=== PATIENT | male | born 1955 | race Caucasian/White ===

== ENCOUNTER → 2016-11-29 | Outpatient (CLI) | payer OTHER ==
--- NOTE | 2016-11-29 13:34 | US ---
EXAM DATE: 11/29/16 PATIENT'S AGE: 61 Patient: MEHREEN PERRY Facility: [place], [place] Site . Site : 1955 Study: US Abdomen [id number]/24/2017 9:28:59 AM Ordering Physician: Steven Leija Final Report: HISTORY: Evaluate for abdominal aortic aneurysm. Comparison: None. Technique: Abdominal aortic ultrasound. Findings: The diameter of the proximal, mid, and distal abdominal aorta, when measured in the longitudinal plane, is 2.0, 1.4, and 1.7 cm respectively. Borderline dilation of the right common iliac artery to 16 mm. Left common iliac artery is normal in caliber. Impression: 1. No sonographic evidence for an abdominal aortic aneurysm. 2. Borderline dilation of the right common iliac artery, of doubtful significance. Dictated by Zbigniew Drake MD @ Nov 29 2016 12:55PM (Electronic Signature) Report Signed by Proxy and Original Signed Document filed in the Medical Record. MTDD
== END ==
LOC: MW.US 08:44
DX: Z13.6 Encounter for screening for cardiovascular disorders (principal); Z72.0 Tobacco use
CPT/HCPCS: 76775; 76775-26

== ENCOUNTER 2017-09-07 15:08 | Inpatient (IN) | payer OTHER ==
[2017-09-07] MEDS ORDERED: Sodium Chloride 0.9% 10 ML Syringe FLUSH PRN (15:45)
[2017-09-07] MEDS ORDERED: Sodium Chloride 0.9% 2.5 ML Syringe FLUSH PRN (15:45)
--- NOTE | 2017-09-07 16:21 | EDM.PDOC ---
ED HPI GENERAL MEDICAL PROBLEM - General Chief Complaint: General Stated Complaint: WEAKNESS Time Seen by Provider: 09/07/17 15:31 Source of Information: Reports: Patient, Family, Old Records History Limitations: Reports: No Limitations - History of Present Illness INITIAL COMMENTS - FREE TEXT/NARRATIVE: HISTORY AND PHYSICAL: []61-year-old male presenting with increased weakness vague symptoms Patient was sent over from the [place] for a wound on his right foot History of Present Illness: []Patient had initially noticed some thing wrong with his foot in June 2017 He was seen a few weeks ago and treated and Ol[facility] Rosenberg for 3 days on vancomycin IV penetrating 1.5 cm ulcer was found on the lateral aspect of right mid foot blood and wound cultures have been entertained at that time no abscess or osteomyelitis have been found on the CT scan recommendation at that time was to follow-up in a larger facility where he would be able to have exploratory surgery as the necrotic tissue may be the "tip of the iceberg" initially [facility] did not approve transfer to tertiary care hospital and patient was discharged He was then treated as outpatient through the [place] clinic. An x-ray was obtained yesterday at [facility] and the states she was told it did not extend into the bone. Patient has worsened with his symptoms and now is quite weak and run a low- grade temperature He is not diabetic. Patient denies headaches difficulty chewing or swallowing no chest pain. Occasionally having some shortness of breath but is on Symbicort. Slight confusion. Hypertension Review of Systems: As per history of present illness and below otherwise all systems reviewed and negative. Past medical history: As per history of present illness and as reviewed below otherwise noncontributory. Surgical history: As per history of present illness and as reviewed below otherwise noncontributory. Social history: No reported history of drug or alcohol abuse. Family history: As per history of present illness and as reviewed below otherwise noncontributory. Physical exam: Alert gentleman presenting with weakness. is at bedside. Is able to answer questions when given time. HEENT: Atraumatic, normocehpalic, pupils reactive, negative for conjunctival pallor or scleral icterus, mucous membranes moist, throat clear, neck supple, nontender, trachea midline. Lungs: Clear to auscultation, breath sounds equal bilaterally, chest non tender. Heart: S1S2, regular, negative for clicks, rubs, or JVD. Abdomen: Soft, nondistended, nontender. Negative for masses or hepatossplenmegaly. Negative for costovertebral tenderness. Pelvis: Stable nontender. Genitourinary: Deferred. Rectal: Deferred Extremities: Right lateral foot with erythema packing to live wound previous x- ray shows arthritic midfoot no involvement to the bone of osteomyelitis, negative for cords or calf pain. Neurovascular unremarkable. Neuro: Awake, alert, oriented. Cranial nerves II through XII unremarkable. Cerebellum unremarkable. Motor and sensory unremarkable throughout. Exam nonfocal. Discussed this case with Dr. Hoyos who has accepted admission. Diagnostics: [CBC CMP blood cultures 2 chest x-ray and CT right foot with contrast] Therapeutics: []1 g Rocephin IV 1 L fluid saline Impression: []Acute cellulitis/chronic wound Plan: []Admit as inpatient for antibiotic therapy Definitive disposition and diagnosis as appropriate pending reevaluation and review of above. Onset: Gradual Duration: Week(s): Location: Reports: Lower Extremity, Right Quality: Reports: Throbbing Severity: Moderate Improves with: Reports: None Worsens with: Reports: None - Related Data Allergies Allergy/AdvReac Type Severity Reaction Status Date / Time codeine Allergy Other Verified 09/07/17 15:33 Home Meds: Home Meds Budesonide/Formoterol [Symbicort 160-4.5 MCG] 2 puff INH BID 09/07/17 [History] Hydrochlorothiazide 25 mg PO DAILY 09/07/17 [History] Losartan [Cozaar] 25 mg PO DAILY 09/07/17 [History] Past Medical History Cardiovascular History: Reports: Hypertension Respiratory History: Reports: COPD Gastrointestinal History: Reports: Other (See Below) Other Gastrointestinal History: umbicial hernia - Infectious Disease History Infectious Disease History: Reports: Measles, Mumps - Past Surgical History Musculoskeletal Surgical History: Reports: Other (See Below) Other Musculoskeletal Surgeries/Procedures:: R Leg Social & Family History - Family History Family Medical History: Noncontributory - Tobacco Use Smoking Status *Q: Never Smoker Second Hand Smoke Exposure: No - Caffeine Use Caffeine Use: Reports: Coffee, Energy Drinks, Soda, Tea - Alcohol Use Days Per Week of Alcohol Use: 7 Number of Drinks Per Day: 8 Total Drinks Per Week: 56 - Recreational Drug Use Recreational Drug Use: No ED ROS GENERAL - Review of Systems Review Of Systems: ROS reveals no pertinent complaints other than HPI. ED EXAM, GENERAL - Physical Exam Exam: See Below Course - Vital Signs Last Recorded V/S: Last Vital Signs Temp 37.6 C 09/07/17 15:29 Pulse 91 09/07/17 15:29 Resp 18 09/07/17 15:29 BP 124/73 09/07/17 15:29 Pulse Ox 93 L 09/07/17 15:29 - Orders/Labs/Meds Orders: Active Orders 24 hr Category Date Time Status Cardiac Monitoring [RC] . DIRECTED Care 09/07/17 15:43 Active EKG Documentation Completion [RC] STAT Care 09/07/17 15:43 Active Oxygen Therapy, ED [RC] ASDIRECTED Care 09/07/17 15:43 Active Chest 2V [CR] Stat Exams 09/07/17 15:45 Taken CULTURE BLOOD [BC] Stat Lab 09/07/17 16:00 Received CULTURE BLOOD [BC] Stat Lab 09/07/17 16:54 Results CULTURE WOUND [RM] Stat Lab 09/07/17 17:28 Uncollected UA W/O MICROSCOPIC [URIN] Stat Lab 09/07/17 15:44 Uncollected Sodium Chloride 0.9% [Normal Saline] 1,000 ml Med 09/07/17 17:31 Active IV STAT Sodium Chloride 0.9% [Saline Flush] Med 09/07/17 15:45 Active 10 ml FLUSH ASDIRECTED PRN Sodium Chloride 0.9% [Saline Flush] Med 09/07/17 15:45 Active 2.5 ml FLUSH ASDIRECTED PRN Blood Culture x2 Reflex Set [OM.PC] Stat Oth 09/07/17 15:46 Ordered Saline Lock Insert [OM.PC] Stat Oth 09/07/17 15:43 Ordered Medication Orders Sodium Chloride (Normal Saline) 1,000 mls @ 999 mls/hr IV STAT ONE Stop: 09/07/17 18:31 Sodium Chloride (Saline Flush) 10 ml FLUSH ASDIRECTED PRN PRN Reason: Keep Vein Open Sodium Chloride (Saline Flush) 2.5 ml FLUSH ASDIRECTED PRN PRN Reason: Keep Vein Open Labs: Laboratory Tests 09/07/17 09/07/17 09/07/17 Range/Units 16:40 16:40 16:40 WBC 8.15 (4.0-11.0) K/uL RBC 4.39 L (4.50-5.90) M/uL Hgb 13.2 (13.0-17.0) g/dL Hct 38.3 (38.0-50.0) % MCV 87.2 (80.0-98.0) fL MCH 30.1 (27.0-32.0) pg MCHC 34.5 (31.0-37.0) g/dL RDW Std Deviation 41.0 (28.0-62.0) fl RDW Coeff of Tony 13 (11.0-15.0) % Plt Count 162 (150-400) K/uL MPV 11.40 (7.40-12.00) fL Neut % (Auto) 84.5 H (48.0-80.0) % Lymph % (Auto) 6.6 L (16.0-40.0) % [place] % (Auto) 8.8 (0.0-15.0) % Eos % (Auto) 0.0 (0.0-7.0) % Baso % (Auto) 0.1 (0.0-1.5) % Neut # (Auto) 6.9 H (1.4-5.7) K/uL Lymph # (Auto) 0.5 L (0.6-2.4) K/uL [place] # (Auto) 0.7 (0.0-0.8) K/uL Eos # (Auto) 0.0 (0.0-0.7) K/uL Baso # (Auto) 0.0 (0.0-0.1) K/uL Nucleated RBC % 0.0 /100WBC Nucleated RBCs # 0 K/uL INR Lactate (0.20-2.00) mmol/L Sodium 129 L (136-146) mmol/L Potassium 4.0 (3.5-5.1) mmol/L Chloride 97 L (98-110) mmol/L Carbon Dioxide 22 (21-31) mmol/L BUN 19 (6.0-23.0) mg/dL Creatinine 0.8 (0.6-1.5) mg/dL Est Cr Clr Drug Dosing 103.74 mL/min Estimated GFR (MDRD) > 60.0 ml/min Glucose 114 H (60-110) mg/dL Calcium 9.0 (8.8-10.8) mg/dL Total Bilirubin 0.9 (0.1-1.5) mg/dL AST 25 (5-40) IU/L ALT 27 (8-54) IU/L Alkaline Phosphatase 84 (40-150) Ammonia 56 (14-68) UG/DL Total Protein 7.5 (6.0-8.0) g/dL Albumin 3.4 (3.4-4.8) g/dL Globulin 4.1 H (2.0-3.5) g/dL Albumin/Globulin Ratio 0.8 L (1.3-2.8) Amylase 27 (10-90) U/L Lipase 15 (7-80) U/L 09/07/17 09/07/17 Range/Units 16:40 16:40 WBC (4.0-11.0) K/uL RBC (4.50-5.90) M/uL Hgb (13.0-17.0) g/dL Hct (38.0-50.0) % MCV (80.0-98.0) fL MCH (27.0-32.0) pg MCHC (31.0-37.0) g/dL RDW Std Deviation (28.0-62.0) fl RDW Coeff of Tony (11.0-15.0) % Plt Count (150-400) K/uL MPV (7.40-12.00) fL Neut % (Auto) (48.0-80.0) % Lymph % (Auto) (16.0-40.0) % [place] % (Auto) (0.0-15.0) % Eos % (Auto) (0.0-7.0) % Baso % (Auto) (0.0-1.5) % Neut # (Auto) (1.4-5.7) K/uL Lymph # (Auto) (0.6-2.4) K/uL [place] # (Auto) (0.0-0.8) K/uL Eos # (Auto) (0.0-0.7) K/uL Baso # (Auto) (0.0-0.1) K/uL Nucleated RBC % /100WBC Nucleated RBCs # K/uL INR 1.09 Lactate 0.9 (0.20-2.00) mmol/L Sodium (136-146) mmol/L Potassium (3.5-5.1) mmol/L Chloride (98-110) mmol/L Carbon Dioxide (21-31) mmol/L BUN (6.0-23.0) mg/dL Creatinine (0.6-1.5) mg/dL Est Cr Clr Drug Dosing mL/min Estimated GFR (MDRD) ml/min Glucose (60-110) mg/dL Calcium (8.8-10.8) mg/dL Total Bilirubin (0.1-1.5) mg/dL AST (5-40) IU/L ALT (8-54) IU/L Alkaline Phosphatase (40-150) Ammonia (14-68) UG/DL Total Protein (6.0-8.0) g/dL Albumin (3.4-4.8) g/dL Globulin (2.0-3.5) g/dL Albumin/Globulin Ratio (1.3-2.8) Amylase (10-90) U/L Lipase (7-80) U/L Meds: Medications Generic Name Dose Route Start Last Admin Trade Name Freq PRN Reason Stop Dose Admin Sodium Chloride 1,000 mls @ 999 mls/hr 09/07/17 17:31 Normal Saline IV 09/07/17 18:31 STAT ONE Sodium Chloride 10 ml 09/07/17 15:45 Saline Flush FLUSH ASDIRECTED PRN Keep Vein Open Sodium Chloride 2.5 ml 09/07/17 15:45 Saline Flush FLUSH ASDIRECTED PRN Keep Vein Open Discontinued Medications Generic Name Dose Route Start Last Admin Trade Name Freq PRN Reason Stop Dose Admin Sodium Chloride 1,000 mls @ 999 mls/hr 09/07/17 16:27 09/07/17 16:48 Normal Saline IV 09/07/17 17:27 999 mls/hr STAT ONE Administration Ceftriaxone Sodium 1,000 mg/ 4 mls @ 4 mls/sec 09/07/17 17:31 Lidocaine HCl IM 09/07/17 17:32 ONETIME ONE Departure - Departure Time of Disposition: 17:42 Disposition: Admitted As Inpatient 64 Condition: Good Clinical Impression: Cellulitis of right foot - Discharge Information Referrals: PCP,None [Primary Care Provider] - Forms: ED Department Discharge - My Orders Last 24 Hours: My Active Orders 09/07/17 15:43 Cardiac Monitoring [RC] . DIRECTED EKG Documentation Completion [RC] STAT Oxygen Therapy, ED [RC] ASDIRECTED Saline Lock Insert [OM.PC] Stat 09/07/17 15:44 UA W/O MICROSCOPIC [URIN] Stat 09/07/17 15:45 Chest 2V [CR] Stat Sodium Chloride 0.9% [Saline Flush] 10 ml FLUSH ASDIRECTED PRN Sodium Chloride 0.9% [Saline Flush] 2.5 ml FLUSH ASDIRECTED PRN 09/07/17 15:46 Blood Culture x2 Reflex Set [OM.PC] Stat 09/07/17 16:00 CULTURE BLOOD [BC] Stat 09/07/17 16:54 CULTURE BLOOD [BC] Stat 09/07/17 17:28 CULTURE WOUND [RM] Stat 09/07/17 17:31 Sodium Chloride 0.9% [Normal Saline] 1,000 ml IV STAT - Assessment/Plan Last 24 Hours: My Active Orders 09/07/17 15:43 Cardiac Monitoring [RC] . DIRECTED EKG Documentation Completion [RC] STAT Oxygen Therapy, ED [RC] ASDIRECTED Saline Lock Insert [OM.PC] Stat 09/07/17 15:44 UA W/O MICROSCOPIC [URIN] Stat 09/07/17 15:45 Chest 2V [CR] Stat Sodium Chloride 0.9% [Saline Flush] 10 ml FLUSH ASDIRECTED PRN Sodium Chloride 0.9% [Saline Flush] 2.5 ml FLUSH ASDIRECTED PRN 09/07/17 15:46 Blood Culture x2 Reflex Set [OM.PC] Stat 09/07/17 16:00 CULTURE BLOOD [BC] Stat 09/07/17 16:54 CULTURE BLOOD [BC] Stat 09/07/17 17:28 CULTURE WOUND [RM] Stat 09/07/17 17:31 Sodium Chloride 0.9% [Normal Saline] 1,000 ml IV STAT
[2017-09-07] MEDS ORDERED: Sodium Chloride 0.9% 1,000 ML IV ONE ×3 (16:27→17:55)
[2017-09-07 17:08] LABS: CHLORIDE,CL 97 mmol/L (98-110); SODIUM,NA 129 mmol/L (136-146)
[2017-09-07] MEDS ORDERED: cefTRIAXone 1,000 MG in Lidocaine 1% 4 ML IM ONE (17:31)
[2017-09-07] MEDS ORDERED: cefTRIAXone 1 GM in Premix Bag 1 BAG IV ONE (18:04)
--- NOTE | 2017-09-07 20:03 | PCM.HP ---
H&P History of Present Illness - General Admit Problem/Dx: Admission Diagnosis/Problem Admission Diagnosis/Problem Cellulitis and abscess of foot excluding toe - History of Present Illness Initial Comments - Free Text/Narative: 61 yo male who has admitted in [facility] on 08/17/17 for cellulitis with 1.5cm penetrating right foot ulcer. CT scan at the time did not show abscess or osteomyolitis. He was treated with IV antibiotics. He was given vancomycin which he reports gave him a headache. After discharge they have been following up at the [facility]. He was prescribed keflex but yesterday developed flue like symptoms which he thought was due to the medicine so he presribed doxycycline. He has been reporting subjective fevers and chills. He does reports blood and purulent drainage from his ulcer. He has no history of diabetes, He reports stabbing pain from the ulcer rt foot Pain Score (Numeric/FACES): 4 - Related Data Allergies/Adverse Reactions: Allergies Allergy/AdvReac Type Severity Reaction Status Date / Time codeine Allergy Other Verified 09/07/17 15:33 Home Medications: Home Meds Budesonide/Formoterol [Symbicort 160-4.5 MCG] 2 puff INH BID 09/07/17 [History] Hydrochlorothiazide 25 mg PO DAILY 09/07/17 [History] Losartan [Cozaar] 25 mg PO DAILY 09/07/17 [History] Past Medical History Cardiovascular History: Reports: Hypertension Respiratory History: Reports: COPD Gastrointestinal History: Reports: Other (See Below) Other Gastrointestinal History: umbicial hernia - Infectious Disease History Infectious Disease History: Reports: Measles, Mumps - Past Surgical History Musculoskeletal Surgical History: Reports: Other (See Below) Other Musculoskeletal Surgeries/Procedures:: R Leg Social & Family History - Family History Family Medical History: Noncontributory - Tobacco Use Smoking Status *Q: Never Smoker Second Hand Smoke Exposure: No - Caffeine Use Caffeine Use: Reports: Coffee, Energy Drinks, Soda, Tea - Alcohol Use Days Per Week of Alcohol Use: 7 Number of Drinks Per Day: 8 Total Drinks Per Week: 56 - Recreational Drug Use Recreational Drug Use: No H&P Review of Systems - Review of Systems: Review Of Systems: ROS reveals no pertinent complaints other than HPI. Exam - Exam Exam: See Below - Vital Signs Vital Signs: Last Vital Signs Temp 37.6 C 09/07/17 15:29 Pulse 92 09/07/17 18:21 Resp 18 09/07/17 18:21 BP 140/80 09/07/17 18:21 Pulse Ox 97 09/07/17 18:21 Weight: 122.47 kg - Exam General: Alert, Oriented HEENT: Mucosa Moist & [place] Lungs: Clear to Auscultation, Normal Respiratory Effort Cardiovascular: Regular Rate, Regular Rhythm GI/Abdominal Exam: Soft, Non-Tender Extremities: No Pedal Edema, Other (right 1 cm ulcer of the lateral fifth metatarsul with adjacent area of cellultis.) - Patient Data Result Diagrams: 09/07/17 16:40 09/07/17 16:40 *Q Meaningful Use (ADM) - VTE *Q VTE Criteria *Q: - Stroke *Q Stroke Criteria *Q: - AMI *Q AMI Criteria *Q: Problem List Initiated/Reviewed/Updated: Yes Orders Last 24hrs: Active Orders 24 hr Category Date Time Status INFLUENZA A+B AG SCREEN [RM] Stat Lab 09/07/17 19:41 Ordered Medication Orders Sodium Chloride (Normal Saline) 1,000 mls @ 125 mls/hr IV STAT ONE Stop: 09/08/17 01:54 Last Admin: 09/07/17 18:14 Dose: 125 mls/hr Sodium Chloride (Saline Flush) 10 ml FLUSH ASDIRECTED PRN PRN Reason: Keep Vein Open Sodium Chloride (Saline Flush) 2.5 ml FLUSH ASDIRECTED PRN PRN Reason: Keep Vein Open Assessment/Plan Comment:: 61 yo male admitted with right foot cellullitis with ulcer
[2017-09-07] MEDS ORDERED: Ondansetron 4 MG/2 ML SDV IVPUSH PRN (20:08)
[2017-09-07] MEDS ORDERED: Ibuprofen 400 MG Tab PO PRN (20:08)
[2017-09-07] MEDS ORDERED: DAPTOmycin 500 MG Vial IVPUSH SCH (20:15)
[2017-09-07] MEDS: Morphine 2 MG/ML Syringe IVPUSH PRN (20:32)
[2017-09-07] MEDS: Heparin Sodium 5,000 Units/ML Vial SUBCUT SCH (23:00)
[2017-09-07] MEDS: SODIUM CHLORIDE 0.9% IVPUSH SCH (23:18)
[2017-09-07] MEDS: DAPTOMYCIN IVPUSH SCH (23:18)
[2017-09-08] MEDS: Sodium Chloride 0.9% 1,000 ML IV SCH ×3 (02:36→17:38)
[2017-09-08] MEDS: oxyCODONE 5 MG Tab PO PRN ×3 (02:41→22:53)
[2017-09-08 05:35] LABS: CHLORIDE,CL 101 mmol/L (98-110); SODIUM,NA 132 mmol/L (136-146)
[2017-09-08] MEDS: Heparin Sodium 5,000 Units/ML Vial SUBCUT SCH (06:24)
--- NOTE | 2017-09-08 07:27 | PCM.PN ---
- General Info Date of Service: 09/08/17 Admission Dx/Problem (Free Text): Admission Diagnosis/Problem Admission Diagnosis/Problem Cellulitis and abscess of foot excluding toe Subjective Update: Doing ok this morning, no complaints of subjective fevers or chills. Didnt sleep well. No chest pain or SOB. No significant pain to RLE or foot. Functional Status: Reports: Pain Controlled, Tolerating Diet, Ambulating, Urinating - Review of Systems Pulmonary: Reports: No Symptoms. Denies: Shortness of Breath Cardiovascular: Reports: No Symptoms. Denies: Chest Pain Gastrointestinal: Reports: No Symptoms. Denies: Abdominal Pain, Nausea, Vomiting Genitourinary: Reports: Retention (earlier this morning, but he was able to urinate and empty bladder.) Neurological: Reports: No Symptoms Psychiatric: Reports: No Symptoms - Patient Data Vitals - Most Recent: Last Vital Signs Temp 98.6 F 09/08/17 04:00 Pulse 82 09/08/17 04:00 Resp 18 09/08/17 04:00 BP 128/70 09/08/17 04:00 Pulse Ox 97 09/08/17 04:00 Weight - Most Recent: 122.47 kg I&O - Last 24 Hours: Intake & Output 09/07/17 09/08/17 09/08/17 22:59 06:59 14:59 Intake Total 1500 Output Total 900 Balance 600 Lab Results Last 24 Hours: Laboratory Results - last 24 hr 09/08/17 09/08/17 09/08/17 Range/Units 04:41 04:41 06:00 WBC 5.46 (4.0-11.0) K/uL RBC 4.12 L (4.50-5.90) M/uL Hgb 12.2 L (13.0-17.0) g/dL Hct 36.3 L (38.0-50.0) % MCV 88.1 (80.0-98.0) fL MCH 29.6 (27.0-32.0) pg MCHC 33.6 (31.0-37.0) g/dL RDW Std Deviation 41.7 (28.0-62.0) fl RDW Coeff of Tony 13 (11.0-15.0) % Plt Count 142 L (150-400) K/uL MPV 11.80 (7.40-12.00) fL Neut % (Auto) 72.1 (48.0-80.0) % Lymph % (Auto) 13.2 L (16.0-40.0) % [place] % (Auto) 14.1 (0.0-15.0) % Eos % (Auto) 0.4 (0.0-7.0) % Baso % (Auto) 0.2 (0.0-1.5) % Neut # (Auto) 3.9 (1.4-5.7) K/uL Lymph # (Auto) 0.7 (0.6-2.4) K/uL [place] # (Auto) 0.8 (0.0-0.8) K/uL Eos # (Auto) 0.0 (0.0-0.7) K/uL Baso # (Auto) 0.0 (0.0-0.1) K/uL Nucleated RBC % 0.0 /100WBC Nucleated RBCs # 0 K/uL Sodium 132 L (136-146) mmol/L Potassium 3.6 (3.5-5.1) mmol/L Chloride 101 (98-110) mmol/L Carbon Dioxide 23 (21-31) mmol/L BUN 14 (6.0-23.0) mg/dL Creatinine 0.8 (0.6-1.5) mg/dL Est Cr Clr Drug Dosing 103.88 mL/min Estimated GFR (MDRD) > 60.0 ml/min Glucose 129 H (60-110) mg/dL Calcium 8.3 L (8.8-10.8) mg/dL Urine Color YELLOW Urine Appearance CLEAR Urine pH 6.0 (5.0-8.0) Ur Specific [place] 1.015 (1.001-1.035) Urine Protein NEGATIVE (NEGATIVE) mg/dL Urine Glucose (UA) NEGATIVE (NEGATIVE) mg/dL Urine Ketones NEGATIVE (NEGATIVE) mg/dL Urine Occult Blood NEGATIVE (NEGATIVE) Urine Nitrite NEGATIVE (NEGATIVE) Urine Bilirubin NEGATIVE (NEGATIVE) Urine Urobilinogen 1.0 (<2.0) EU/dL Ur Leukocyte Esterase NEGATIVE (NEGATIVE) Esvin Results Last 24 Hours: Microbiology 09/07/17 19:46 Influenza Type A Antigen Screen - Final Nasopharyngeal Swab NEGATIVE INFLUENZA A VIRUS AG Influenza Type B Antigen Screen - Final NEGATIVE INFLUENZA B VIRUS AG Med Orders - Current: Current Medications Acetaminophen (Tylenol) 650 mg PO Q4H PRN PRN Reason: Pain (Mild 1-3)/fever Heparin Sodium (Porcine) (Heparin Sodium) 5,000 units SUBCUT Q8H [facility] Last Admin: 09/08/17 06:24 Dose: 5,000 units Hydrochlorothiazide (Hydrochlorothiazide) 25 mg PO DAILY [facility] Sodium Chloride (Normal Saline) 1,000 mls @ 125 mls/hr IV ASDIRECTED [facility] Last Admin: 09/08/17 02:36 Dose: 125 mls/hr Daptomycin 500 mg/ Sodium (Chloride) 20 mls @ 400 mls/hr IVPUSH DAILY@2200 [facility] Last Admin: 09/07/17 23:18 Dose: 400 mls/hr Ibuprofen (Motrin) 400 mg PO Q6H PRN PRN Reason: Pain (mild 1-3) Losartan Potassium (Cozaar) 25 mg PO DAILY [facility] Morphine Sulfate (Morphine) 2 mg IVPUSH Q3H PRN PRN Reason: Pain (severe 7-10) Last Admin: 09/07/17 20:32 Dose: 2 mg Ondansetron HCl (Zofran) 4 mg IVPUSH Q4H PRN PRN Reason: Nausea Oxycodone HCl (Oxycodone) 5 mg PO Q4H PRN PRN Reason: Pain (moderate 4-6) Last Admin: 09/08/17 02:41 Dose: 5 mg Symbicort 160/4.5 (Mdi 2 Puffs) 1 each INH BID [facility] Sodium Chloride (Saline Flush) 10 ml FLUSH ASDIRECTED PRN PRN Reason: Keep Vein Open Sodium Chloride (Saline Flush) 2.5 ml FLUSH ASDIRECTED PRN PRN Reason: Keep Vein Open Discontinued Medications Sodium Chloride (Normal Saline) 1,000 mls @ 999 mls/hr IV STAT ONE Stop: 09/07/17 17:27 Last Admin: 09/07/17 16:48 Dose: 999 mls/hr Ceftriaxone Sodium 1,000 mg/ (Lidocaine HCl) 4 mls @ 4 mls/sec IM ONETIME ONE Stop: 09/07/17 17:32 Last Admin: 09/07/17 18:05 Dose: Not Given Sodium Chloride (Normal Saline) 1,000 mls @ 999 mls/hr IV STAT ONE Stop: 09/07/17 18:31 Last Admin: 09/07/17 18:05 Dose: Not Given Sodium Chloride (Normal Saline) 1,000 mls @ 125 mls/hr IV STAT ONE Stop: 09/08/17 01:54 Last Admin: 09/07/17 18:14 Dose: 125 mls/hr Ceftriaxone Sodium/Dextrose 1 (gm/ Premix) 50 mls @ 100 mls/hr IV ONETIME ONE Stop: 09/07/17 18:33 Last Admin: 09/07/17 18:15 Dose: 100 mls/hr - Exam General: Alert, Oriented, Cooperative, No Acute Distress Neck: Supple Lungs: Clear to Auscultation, Normal Respiratory Effort Cardiovascular: Regular Rate, Regular Rhythm GI/Abdominal Exam: Normal Bowel Sounds, Soft, Non-Tender, No Organomegaly, No Distention, No Abnormal Bruit, No Mass, Pelvis Stable Back Exam: Normal Inspection, Full Range of Motion Extremities: Normal Range of Motion Wound/Incisions: Drainage (moderate purulent drainage from R ulcer to dorsum of foot. Large fluctuance area just lateral to opening. No significant pain with palpation. wound culture pending. Erythema noted to mid brown as well, not going beyond outlined wing, warm and tender to palpation. No fluctuance.), Erythema Neurological: No New Focal Deficit Psy/Mental Status: Alert, Normal Affect, Normal Mood - Problem List & Annotations (1) Right foot ulcer SNOMED Code(s): 55026835 Code(s): L97.519 - NON-PRS CHRONIC ULCER OTH PRT RIGHT FOOT W UNSP SEVERITY Status: Acute Current Visit: Yes Qualifiers: Non-pressure ulcer stage: limited to breakdown of skin Qualified Code(s): L97.511 - Non-pressure chronic ulcer of other part of right foot limited to breakdown of skin (2) Cellulitis of right leg SNOMED Code(s): 452209088 Code(s): L03.115 - CELLULITIS OF RIGHT LOWER LIMB Status: Acute Current Visit: Yes (3) Cellulitis of right foot SNOMED Code(s): 632313994 Code(s): L03.115 - CELLULITIS OF RIGHT LOWER LIMB Status: Acute Current Visit: Yes (4) HTN (hypertension) SNOMED Code(s): 59397474 Code(s): I10 - ESSENTIAL (PRIMARY) HYPERTENSION Status: Chronic Current Visit: Yes Qualifiers: Hypertension type: essential hypertension Qualified Code(s): I10 - Essential (primary) hypertension (5) COPD (chronic obstructive pulmonary disease) SNOMED Code(s): 72005704 Code(s): J44.9 - CHRONIC OBSTRUCTIVE PULMONARY DISEASE, UNSPECIFIED Status : Chronic Current Visit: Yes Qualifiers: COPD type: unspecified COPD Qualified Code(s): J44.9 - Chronic obstructive pulmonary disease, unspecified - Problem List Review Problem List Initiated/Reviewed/Updated: Yes - Plan Plan:: 61 yo male admitted with right foot/leg cellulitis with ulcer to R foot 1. Cellulitis with suspected abscess: Continue Daptomycin, culture pending. No Leukocytosis. MRI ordered today to rule out osteomyelitis. SPoke with Dr Langston, podiatry. I will call him back with MRI results and he will plan on seeing patient this evening and assess patient for need of surgical debridement. Will stop Heparin now, due to possible surgery. Restart after surgery or if surgical intervention not needed. 2. HTN: Stable. Continue Cozaar and HCTZ. 3. COPD: Stable. Continue Symbicort. VTE prophylaxis: Hold heparin for now, SCDs to left leg
[2017-09-08] MEDS: SYMBICORT INH SCH ×3 (07:38→21:20)
[2017-09-08] MEDS: MDI INH SCH ×3 (07:38→21:20)
--- NOTE | 2017-09-08 09:21 | CR ---
EXAM DATE: 09/07/17 PATIENT'S AGE: 61 Patient: MEHREEN PERRY Facility: [place], [place] Site . Site : 1955 Study: XRay Chest [id number]/31/2018 4:26:15 PM Ordering Physician: Doctor Goyal Final Report: INDICATION: SOB. TECHNIQUE: PA and lateral. COMPARISON: None. FINDINGS: Lungs and pleural spaces clear. Heart size and pulmonary vasculature within normal limits. No significant osseous abnormality. IMPRESSION: Negative chest. Dictated by Nicolas Mack MD @ Sep 07 2017 4:40PM (Electronic Signature) Report Signed by Proxy. MEDISYS HEALTH NETWORKAramis
[2017-09-08] MEDS: Hydrochlorothiazide 25 MG Tab PO SCH (09:34)
[2017-09-08] MEDS: Losartan 50 MG Tab PO SCH (09:34)
[2017-09-08] MEDS: Acetaminophen 325 MG Tab PO PRN ×2 (16:34→22:58)
[2017-09-08] MEDS: Morphine 2 MG/ML Syringe IVPUSH PRN (20:13)
[2017-09-08] MEDS: DAPTOMYCIN IVPUSH SCH (22:32)
[2017-09-08] MEDS: SODIUM CHLORIDE 0.9% IVPUSH SCH (22:32)
[2017-09-09 06:26] LABS: CHLORIDE,CL 105 mmol/L (98-110); SODIUM,NA 137 mmol/L (136-146)
[2017-09-09] MEDS: Hydrochlorothiazide 25 MG Tab PO SCH (08:54)
[2017-09-09] MEDS: Losartan 50 MG Tab PO SCH (08:55)
[2017-09-09] MEDS: MDI INH SCH ×2 (09:03→23:16)
[2017-09-09] MEDS: SYMBICORT INH SCH ×2 (09:03→23:16)
[2017-09-09] MEDS: oxyCODONE 5 MG Tab PO PRN ×2 (09:09→20:51)
--- NOTE | 2017-09-09 09:19 | PCM.PN ---
- General Info Date of Service: 09/09/17 Admission Dx/Problem (Free Text): Admission Diagnosis/Problem Admission Diagnosis/Problem Cellulitis and abscess of foot excluding toe Subjective Update: Doing ok this morning, having some burning pain to R foot. Otherwise no chest pain or SOB. Unable to keep still due to pain for MRI. Functional Status: Reports: Pain Controlled, Tolerating Diet, Ambulating, Urinating - Review of Systems Pulmonary: Reports: No Symptoms. Denies: Shortness of Breath Cardiovascular: Reports: No Symptoms. Denies: Chest Pain Gastrointestinal: Reports: No Symptoms. Denies: Abdominal Pain, Nausea, Vomiting Genitourinary: Reports: No Symptoms. Denies: Dysuria, Frequency, Burning, Pain Musculoskeletal: Reports: Foot Pain (R foot ulcer) Skin: Reports: Other (Wound) Neurological: Reports: No Symptoms. Denies: Confusion Psychiatric: Reports: No Symptoms. Denies: Confusion - Patient Data Vitals - Most Recent: Last Vital Signs Temp 98.4 F 09/09/17 07:49 Pulse 75 09/09/17 07:49 Resp 18 09/09/17 07:49 BP 129/74 09/09/17 08:55 Pulse Ox 93 L 09/09/17 07:49 Weight - Most Recent: 122.47 kg I&O - Last 24 Hours: Intake & Output 09/08/17 09/09/17 09/09/17 22:59 06:59 14:59 Intake Total 720 500 Output Total 750 Balance -30 500 Lab Results Last 24 Hours: Laboratory Results - last 24 hr 09/09/17 09/09/17 Range/Units 05:14 05:14 WBC 5.86 (4.0-11.0) K/uL RBC 3.99 L (4.50-5.90) M/uL Hgb 11.8 L (13.0-17.0) g/dL Hct 34.7 L (38.0-50.0) % MCV 87.0 (80.0-98.0) fL MCH 29.6 (27.0-32.0) pg MCHC 34.0 (31.0-37.0) g/dL RDW Std Deviation 41.1 (28.0-62.0) fl RDW Coeff of Tony 13 (11.0-15.0) % Plt Count 153 (150-400) K/uL MPV 11.60 (7.40-12.00) fL Neut % (Auto) 68.5 (48.0-80.0) % Lymph % (Auto) 13.7 L (16.0-40.0) % [place] % (Auto) 16.9 H (0.0-15.0) % Eos % (Auto) 0.7 (0.0-7.0) % Baso % (Auto) 0.2 (0.0-1.5) % Neut # (Auto) 4.0 (1.4-5.7) K/uL Lymph # (Auto) 0.8 (0.6-2.4) K/uL [place] # (Auto) 1.0 H (0.0-0.8) K/uL Eos # (Auto) 0.0 (0.0-0.7) K/uL Baso # (Auto) 0.0 (0.0-0.1) K/uL Nucleated RBC % 0.0 /100WBC Nucleated RBCs # 0 K/uL Sodium 137 (136-146) mmol/L Potassium 3.6 (3.5-5.1) mmol/L Chloride 105 (98-110) mmol/L Carbon Dioxide 23 (21-31) mmol/L BUN 11 (6.0-23.0) mg/dL Creatinine 0.7 (0.6-1.5) mg/dL Est Cr Clr Drug Dosing 118.72 mL/min Estimated GFR (MDRD) > 60.0 ml/min Glucose 93 (60-110) mg/dL Calcium 8.4 L (8.8-10.8) mg/dL Med Orders - Current: Current Medications Acetaminophen (Tylenol) 650 mg PO Q4H PRN PRN Reason: Pain (Mild 1-3)/fever Last Admin: 09/08/17 22:58 Dose: 650 mg Hydrochlorothiazide (Hydrochlorothiazide) 25 mg PO DAILY [facility] Last Admin: 09/09/17 08:54 Dose: 25 mg Daptomycin 500 mg/ Sodium (Chloride) 20 mls @ 400 mls/hr IVPUSH DAILY@2200 [facility] Last Admin: 09/08/17 22:32 Dose: 400 mls/hr Ibuprofen (Motrin) 400 mg PO Q6H PRN PRN Reason: Pain (mild 1-3) Losartan Potassium (Cozaar) 25 mg PO DAILY [facility] Last Admin: 09/09/17 08:55 Dose: 25 mg Morphine Sulfate (Morphine) 2 mg IVPUSH Q3H PRN PRN Reason: Pain (severe 7-10) Last Admin: 09/08/17 20:13 Dose: 2 mg Ondansetron HCl (Zofran) 4 mg IVPUSH Q4H PRN PRN Reason: Nausea Oxycodone HCl (Oxycodone) 5 mg PO Q4H PRN PRN Reason: Pain (moderate 4-6) Last Admin: 09/09/17 09:09 Dose: 5 mg Symbicort 160/4.5 (Mdi 2 Puffs) 1 each INH BID [facility] Last Admin: 09/09/17 09:03 Dose: 1 each Sodium Chloride (Saline Flush) 10 ml FLUSH ASDIRECTED PRN PRN Reason: Keep Vein Open Sodium Chloride (Saline Flush) 2.5 ml FLUSH ASDIRECTED PRN PRN Reason: Keep Vein Open Discontinued Medications Heparin Sodium (Porcine) (Heparin Sodium) 5,000 units SUBCUT Q8H [facility] Last Admin: 09/08/17 06:24 Dose: 5,000 units Sodium Chloride (Normal Saline) 1,000 mls @ 999 mls/hr IV STAT ONE Stop: 09/07/17 17:27 Last Admin: 09/07/17 16:48 Dose: 999 mls/hr Ceftriaxone Sodium 1,000 mg/ (Lidocaine HCl) 4 mls @ 4 mls/sec IM ONETIME ONE Stop: 09/07/17 17:32 Last Admin: 09/07/17 18:05 Dose: Not Given Sodium Chloride (Normal Saline) 1,000 mls @ 999 mls/hr IV STAT ONE Stop: 09/07/17 18:31 Last Admin: 09/07/17 18:05 Dose: Not Given Sodium Chloride (Normal Saline) 1,000 mls @ 125 mls/hr IV STAT ONE Stop: 09/08/17 01:54 Last Admin: 09/07/17 18:14 Dose: 125 mls/hr Ceftriaxone Sodium/Dextrose 1 (gm/ Premix) 50 mls @ 100 mls/hr IV ONETIME ONE Stop: 09/07/17 18:33 Last Admin: 09/07/17 18:15 Dose: 100 mls/hr Sodium Chloride (Normal Saline) 1,000 mls @ 125 mls/hr IV ASDIRECTED [facility] Last Admin: 09/08/17 17:38 Dose: 125 mls/hr - Exam General: Alert, Oriented, Cooperative, No Acute Distress Neck: Supple Lungs: Clear to Auscultation, Normal Respiratory Effort Cardiovascular: Regular Rate, Regular Rhythm GI/Abdominal Exam: Normal Bowel Sounds, Soft, Non-Tender, No Organomegaly, No Distention, No Abnormal Bruit, No Mass, Pelvis Stable Extremities: Normal Inspection, Normal Range of Motion, Non-Tender, No Pedal Edema, Normal Capillary Refill Wound/Incisions: Erythema Improving (Mid brown cellulitis much improve scant erythema continues to medial edge of brown. R foot erythema improving, continued pocket to lateral edge with noted fluctuance, less purulent drainage today, unable to probe wound very far with Qtip. pain to palpatin to dorsum of foot. Wet to dry dressing applied) - Problem List & Annotations (1) Right foot ulcer SNOMED Code(s): 86217443 Code(s): L97.519 - NON-PRS CHRONIC ULCER OTH PRT RIGHT FOOT W UNSP SEVERITY Status: Acute Current Visit: Yes Qualifiers: Non-pressure ulcer stage: limited to breakdown of skin Qualified Code(s): L97.511 - Non-pressure chronic ulcer of other part of right foot limited to breakdown of skin (2) Cellulitis of right leg SNOMED Code(s): 274974656 Code(s): L03.115 - CELLULITIS OF RIGHT LOWER LIMB Status: Acute Current Visit: Yes (3) Cellulitis of right foot SNOMED Code(s): 767757431 Code(s): L03.115 - CELLULITIS OF RIGHT LOWER LIMB Status: Acute Current Visit: Yes (4) HTN (hypertension) SNOMED Code(s): 97951858 Code(s): I10 - ESSENTIAL (PRIMARY) HYPERTENSION Status: Chronic Current Visit: Yes Qualifiers: Hypertension type: essential hypertension Qualified Code(s): I10 - Essential (primary) hypertension (5) COPD (chronic obstructive pulmonary disease) SNOMED Code(s): 23692035 Code(s): J44.9 - CHRONIC OBSTRUCTIVE PULMONARY DISEASE, UNSPECIFIED Status : Chronic Current Visit: Yes Qualifiers: COPD type: unspecified COPD Qualified Code(s): J44.9 - Chronic obstructive pulmonary disease, unspecified - Problem List Review Problem List Initiated/Reviewed/Updated: Yes - My Orders Last 24 Hours: My Active Orders 09/09/17 07:44 Consult to Physician [CONS] Routine 09/09/17 07:45 Notify Provider Consults [RC] ASDIRECTED - Plan Plan:: 61 yo male admitted with right foot/leg cellulitis with ulcer to R foot 1. Cellulitis with suspected abscess: Wound culture returns MRSA, will change abx to Clindamycin 600 mg TID IV for now. No Leukocytosis. Unable to obtained MRI. SPoke with Dr Langston, podiatry. He will see patient today. BC negative x 2. 2. HTN: Stable. Continue Cozaar and HCTZ. 3. COPD: Stable. Continue Symbicort. VTE prophylaxis: Hold heparin for now, SCDs to left leg Dispo: 2-3 days pending podiatry consult.
[2017-09-09] MEDS: Acetaminophen 325 MG Tab PO PRN (14:49)
--- NOTE | 2017-09-09 20:09 | PCM.CONS ---
H&P History of Present Illness - General Date of Service: 09/09/17 (patient seen today at approximately 12 noon.) Admit Problem/Dx: Admission Diagnosis/Problem Admission Diagnosis/Problem Cellulitis and abscess of foot excluding toe Source of Information: Patient, Provider History Limitations: Reports: No Limitations - History of Present Illness Onset of Symptoms: Reports: Unknown/Unsure Duration of Symptoms: Reports: Chronic Location: Reports: Lower Extremity, Right Quality: Reports: Dull Improves with: Reports: None Worsens with: Reports: None Associated Symptoms: Reports: No Other Symptoms rt foot Pain Score (Numeric/FACES): 3 - Related Data Allergies/Adverse Reactions: Allergies Allergy/AdvReac Type Severity Reaction Status Date / Time codeine Allergy Other Verified 09/07/17 15:33 Home Medications: Home Meds Budesonide/Formoterol [Symbicort 160-4.5 MCG] 2 puff INH BID 09/07/17 [History] Hydrochlorothiazide 25 mg PO DAILY 09/07/17 [History] Losartan [Cozaar] 25 mg PO DAILY 09/07/17 [History] Past Medical History HEENT History: Reports: Hard of Hearing, Impaired Vision Cardiovascular History: Reports: Hypertension Respiratory History: Reports: COPD Gastrointestinal History: Reports: Other (See Below) Other Gastrointestinal History: umbicial hernia Genitourinary History: Reports: None Musculoskeletal History: Reports: Other (See Below) Other Musculoskeletal History: carpal tunnel R hand Neurological History: Reports: None Psychiatric History: Reports: None Endocrine/Metabolic History: Reports: None Hematologic History: Reports: None Immunologic History: Reports: None Oncologic (Cancer) History: Reports: None Dermatologic History: Reports: Other (See Below) Other Dermatologic History: yeast infection on right leg - Infectious Disease History Infectious Disease History: Reports: Measles, Mumps - Past Surgical History Musculoskeletal Surgical History: Reports: Other (See Below) Other Musculoskeletal Surgeries/Procedures:: R Leg Social & Family History - Family History Family Medical History: Noncontributory - Tobacco Use Smoking Status *Q: Never Smoker Second Hand Smoke Exposure: No - Caffeine Use Caffeine Use: Reports: Coffee, Energy Drinks, Soda, Tea - Alcohol Use Days Per Week of Alcohol Use: 7 Number of Drinks Per Day: 8 Total Drinks Per Week: 56 - Recreational Drug Use Recreational Drug Use: No H&P Review of Systems - Review of Systems: Review Of Systems: ROS reveals no pertinent complaints other than HPI. Exam - Exam Exam: See Below - Vital Signs Vital Signs: Last Vital Signs Temp 36.9 C 09/09/17 16:00 Pulse 85 09/09/17 16:00 Resp 16 09/09/17 16:00 BP 105/49 L 09/09/17 16:00 Pulse Ox 95 09/09/17 16:00 Weight: 122.47 kg - Exam Extremities: Other (right lower extremity warm with marked area of cellulitis on anterior leg and ulcer over 5th metatarsal base 1.5 cm diameter adjacent to a fluctuant area that contains fluid, small amount of purulent drainage noted on exsanguination) Peripheral Pulses: 0: Posterior Tibial (R) (nonpalpable likely due to edema), Dorsalis Pedis (R) (nonpalpable likely due to edema), 1+: Posterior Tibial (L), 2+: Dorsalis Pedis (L) Skin: Warm (right lower extremity significantly warmer than left.) Neurological: Cranial Nerves Intact Neuro Extensive - Mental Status: Alert, Oriented x3 Physical Exam Comments:: right lower extremity warm with marked area of cellulitis on anterior leg and ulcer over 5th metatarsal base 1.5 cm diameter adjacent to a fluctuant area that contains fluid, small amount of purulent drainage noted on exsanguination. The entire right foot is excessively warm and significantly edematous. - Patient Data Lab Results Last 24 hrs: Laboratory Results - last 24 hr 09/09/17 09/09/17 Range/Units 05:14 05:14 WBC 5.86 (4.0-11.0) K/uL RBC 3.99 L (4.50-5.90) M/uL Hgb 11.8 L (13.0-17.0) g/dL Hct 34.7 L (38.0-50.0) % MCV 87.0 (80.0-98.0) fL MCH 29.6 (27.0-32.0) pg MCHC 34.0 (31.0-37.0) g/dL RDW Std Deviation 41.1 (28.0-62.0) fl RDW Coeff of Tony 13 (11.0-15.0) % Plt Count 153 (150-400) K/uL MPV 11.60 (7.40-12.00) fL Neut % (Auto) 68.5 (48.0-80.0) % Lymph % (Auto) 13.7 L (16.0-40.0) % [place] % (Auto) 16.9 H (0.0-15.0) % Eos % (Auto) 0.7 (0.0-7.0) % Baso % (Auto) 0.2 (0.0-1.5) % Neut # (Auto) 4.0 (1.4-5.7) K/uL Lymph # (Auto) 0.8 (0.6-2.4) K/uL [place] # (Auto) 1.0 H (0.0-0.8) K/uL Eos # (Auto) 0.0 (0.0-0.7) K/uL Baso # (Auto) 0.0 (0.0-0.1) K/uL Nucleated RBC % 0.0 /100WBC Nucleated RBCs # 0 K/uL Sodium 137 (136-146) mmol/L Potassium 3.6 (3.5-5.1) mmol/L Chloride 105 (98-110) mmol/L Carbon Dioxide 23 (21-31) mmol/L BUN 11 (6.0-23.0) mg/dL Creatinine 0.7 (0.6-1.5) mg/dL Est Cr Clr Drug Dosing 118.72 mL/min Estimated GFR (MDRD) > 60.0 ml/min Glucose 93 (60-110) mg/dL Calcium 8.4 L (8.8-10.8) mg/dL Result Diagrams: 09/09/17 05:14 09/09/17 05:14 Consult PN Assessment/Plan Procedures: Procedures UPR/L XTREMITY ART 2 LEVELS (09/07/17) US EXAM ABDO BACK WALL MOORE (11/29/16) X-RAY EXAM OF FOOT (08/16/17) (1) Cellulitis of right foot SNOMED Code(s): 257670890 Code(s): L03.115 - CELLULITIS OF RIGHT LOWER LIMB Current Visit: Yes Assessment:: While it may be improving, combined with the ulcer this remains a concern. (2) Cellulitis of right leg SNOMED Code(s): 985485019 Code(s): L03.115 - CELLULITIS OF RIGHT LOWER LIMB Current Visit: Yes Assessment:: I understand this is improving. I believe it is at least partially related to the ulcer on the foot. (3) Right foot ulcer SNOMED Code(s): 29272422 Code(s): L97.519 - NON-PRS CHRONIC ULCER OTH PRT RIGHT FOOT W UNSP SEVERITY Current Visit: Yes Qualifiers: Non-pressure ulcer stage: with fat layer exposed Qualified Code(s): L97.512 - Non-pressure chronic ulcer of other part of right foot with fat layer exposed Assessment:: The ulcer may be more sigificant than currently assessed and needs to be incised and drained and explored. Problem List Initiated/Reviewed/Updated: Yes Plan: 1. Plan for incision and drainage of right foot ulcer 2. Surgery discussed with patient and is scheduled for 9 am tomorrow, 09/10/17. 3. Continue IV abx for MRSA 4. Will follow.
[2017-09-09] MEDS: Clindamycin Phosphate in D5W 600 MG in Premix Bag 50 BAG IV SCH ×2 (23:22)
[2017-09-09] MEDS: Sodium Chloride 0.9% 1,000 ML IV SCH (23:23)
[2017-09-10 06:39] LABS: CHLORIDE,CL 105 mmol/L (98-110); SODIUM,NA 137 mmol/L (136-146)
[2017-09-10] MEDS: Clindamycin Phosphate in D5W 600 MG in Premix Bag 50 BAG IV SCH ×6 (07:01→21:52)
[2017-09-10] MEDS ORDERED: Bupivacaine 0.5% 30 ML SDV ONE (08:39)
[2017-09-10] MEDS: Lactated Ringers 1,000 ML IV SCH ×2 (08:49→21:44)
--- NOTE | 2017-09-10 08:51 | PCM.PREANE ---
Preanesthetic Assessment - Anesthesia/Transfusion/Family Hx Anesthesia History: Prior Anesthesia Without Reaction Transfusion History: No Prior Transfusion(s) - Review of Systems General: No Symptoms Pulmonary: No Symptoms Cardiovascular: No Symptoms Gastrointestinal: No Symptoms Neurological: No Symptoms Other: Reports: None - Physical Assessment NPO Status Date: 09/09/17 NPO Status Time: 22:00 O2 Sat by Pulse Oximetry: 93 Respiratory Rate: 16 Blood Pressure: 129/74 Vital Signs: Last Vital Signs Temp 98.6 F 09/10/17 04:00 Pulse 71 09/10/17 04:00 Resp 16 09/10/17 04:00 BP 121/70 09/10/17 04:00 Pulse Ox 93 L 09/10/17 04:00 Height: 6 ft 0.05 in Weight: 122.47 kg ASA Class: 3 Mental Status: Alert & Oriented x3 Airway Class: Mallampati = 2 Dentition: Reports: Missing Tooth/Teeth Thyro-Mental Finger Breadths: 3 Mouth Opening Finger Breadths: 3 ROM/Head Extension: Limited/Partial Lungs: Clear to Auscultation, Normal Respiratory Effort Cardiovascular: Regular Rate, Regular Rhythm - Lab Values: Laboratory Last Values WBC 4.30 K/uL (4.0-11.0) 09/10/17 05:58 RBC 3.67 M/uL (4.50-5.90) L 09/10/17 05:58 Hgb 10.8 g/dL (13.0-17.0) L 09/10/17 05:58 Hct 31.7 % (38.0-50.0) L 09/10/17 05:58 MCV 86.4 fL (80.0-98.0) 09/10/17 05:58 MCH 29.4 pg (27.0-32.0) 09/10/17 05:58 MCHC 34.1 g/dL (31.0-37.0) 09/10/17 05:58 RDW Std Deviation 40.6 fl (28.0-62.0) 09/10/17 05:58 RDW Coeff of Tony 13 % (11.0-15.0) 09/10/17 05:58 Plt Count 176 K/uL (150-400) 09/10/17 05:58 MPV 11.30 fL (7.40-12.00) 09/10/17 05:58 Neut % (Auto) 61.7 % (48.0-80.0) 09/10/17 05:58 Lymph % (Auto) 21.4 % (16.0-40.0) 09/10/17 05:58 [place] % (Auto) 15.1 % (0.0-15.0) H 09/10/17 05:58 Eos % (Auto) 1.6 % (0.0-7.0) 09/10/17 05:58 Baso % (Auto) 0.2 % (0.0-1.5) 09/10/17 05:58 Neut # (Auto) 2.7 K/uL (1.4-5.7) 09/10/17 05:58 Lymph # (Auto) 0.9 K/uL (0.6-2.4) 09/10/17 05:58 [place] # (Auto) 0.7 K/uL (0.0-0.8) 09/10/17 05:58 Eos # (Auto) 0.1 K/uL (0.0-0.7) 09/10/17 05:58 Baso # (Auto) 0.0 K/uL (0.0-0.1) 09/10/17 05:58 Nucleated RBC % 0.0 /100WBC 09/10/17 05:58 Nucleated RBCs # 0 K/uL 09/10/17 05:58 INR 1.09 09/07/17 16:40 Lactate 0.9 mmol/L (0.20-2.00) 09/07/17 16:40 Sodium 137 mmol/L (136-146) 09/10/17 05:58 Potassium 3.2 mmol/L (3.5-5.1) L 09/10/17 05:58 Chloride 105 mmol/L (98-110) 09/10/17 05:58 Carbon Dioxide 24 mmol/L (21-31) 09/10/17 05:58 BUN 12 mg/dL (6.0-23.0) 09/10/17 05:58 Creatinine 0.7 mg/dL (0.6-1.5) 09/10/17 05:58 Est Cr Clr Drug Dosing 118.72 mL/min 09/10/17 05:58 Estimated GFR (MDRD) > 60.0 ml/min 09/10/17 05:58 Glucose 125 mg/dL (60-110) H 09/10/17 05:58 Calcium 8.9 mg/dL (8.8-10.8) 09/10/17 05:58 Total Bilirubin 0.9 mg/dL (0.1-1.5) 09/07/17 16:40 AST 25 IU/L (5-40) 09/07/17 16:40 ALT 27 IU/L (8-54) 09/07/17 16:40 Alkaline Phosphatase 84 (40-150) 09/07/17 16:40 Ammonia 56 UG/DL (14-68) 09/07/17 16:40 Creatine Kinase 69 IU/L (9-236) 09/07/17 16:40 Total Protein 7.5 g/dL (6.0-8.0) 09/07/17 16:40 Albumin 3.4 g/dL (3.4-4.8) 09/07/17 16:40 Globulin 4.1 g/dL (2.0-3.5) H 09/07/17 16:40 Albumin/Globulin Ratio 0.8 (1.3-2.8) L 09/07/17 16:40 Amylase 27 U/L (10-90) 09/07/17 16:40 Lipase 15 U/L (7-80) 09/07/17 16:40 Urine Color YELLOW 09/08/17 06:00 Urine Appearance CLEAR 09/08/17 06:00 Urine pH 6.0 (5.0-8.0) 09/08/17 06:00 Ur Specific [place] 1.015 (1.001-1.035) 09/08/17 06:00 Urine Protein NEGATIVE mg/dL (NEGATIVE) 09/08/17 06:00 Urine Glucose (UA) NEGATIVE mg/dL (NEGATIVE) 09/08/17 06:00 Urine Ketones NEGATIVE mg/dL (NEGATIVE) 09/08/17 06:00 Urine Occult Blood NEGATIVE (NEGATIVE) 09/08/17 06:00 Urine Nitrite NEGATIVE (NEGATIVE) 09/08/17 06:00 Urine Bilirubin NEGATIVE (NEGATIVE) 09/08/17 06:00 Urine Urobilinogen 1.0 EU/dL (<2.0) 09/08/17 06:00 Ur Leukocyte Esterase NEGATIVE (NEGATIVE) 09/08/17 06:00 - Allergies Allergies/Adverse Reactions: Allergies Allergy/AdvReac Type Severity Reaction Status Date / Time codeine Allergy Other Verified 09/07/17 15:33 - Acknowledgements Anesthesia Type Planned: General Anesthesia Pt an Appropriate Candidate for the Planned Anesthesia: Yes Alternatives and Risks of Anesthesia Discussed w Pt/Guardian: Yes Pt/Guardian Understands and Agrees with Anesthesia Plan: Yes PreAnesthesia Questionnaire HEENT History: Reports: Hard of Hearing, Impaired Vision Cardiovascular History: Reports: Hypertension Respiratory History: Reports: Asthma, COPD Gastrointestinal History: Reports: Other (See Below) Other Gastrointestinal History: umbicial hernia Genitourinary History: Reports: None Musculoskeletal History: Reports: Other (See Below) Other Musculoskeletal History: carpal tunnel R hand Neurological History: Reports: None Psychiatric History: Reports: None Endocrine/Metabolic History: Reports: Obesity/BMI 30+ Hematologic History: Reports: None Immunologic History: Reports: None Oncologic (Cancer) History: Reports: None Dermatologic History: Reports: Other (See Below) Other Dermatologic History: yeast infection on right leg - Infectious Disease History Infectious Disease History: Reports: Measles, MRSA, Mumps - Past Surgical History Musculoskeletal Surgical History: Reports: Carpal Tunnel, Other (See Below) Other Musculoskeletal Surgeries/Procedures:: Rt Hip Replacement - SUBSTANCE USE Smoking Status *Q: Former Smoker (Quit 40 years ago) Second Hand Smoke Exposure: No Days Per Week of Alcohol Use: 7 Number of Drinks Per Day: 8 Total Drinks Per Week: 56 Recreational Drug Use History: No - HOME MEDS Home Medications: Home Meds Budesonide/Formoterol [Symbicort 160-4.5 MCG] 2 puff INH BID 09/07/17 [History] Hydrochlorothiazide 25 mg PO DAILY 09/07/17 [History] Losartan [Cozaar] 25 mg PO DAILY 09/07/17 [History] - CURRENT (IN HOUSE) MEDS Current Meds: Current Medications Acetaminophen (Tylenol) 650 mg PO Q4H PRN PRN Reason: Pain (Mild 1-3)/fever Last Admin: 09/09/17 14:49 Dose: 650 mg Hydrochlorothiazide (Hydrochlorothiazide) 25 mg PO DAILY [facility] Last Admin: 09/09/17 08:54 Dose: 25 mg Clindamycin Phosphate 600 mg/ (Premix) 50 mls @ 100 mls/hr IV Q8H [facility] Last Admin: 09/10/17 07:01 Dose: 100 mls/hr Sodium Chloride (Normal Saline) 1,000 mls @ 50 mls/hr IV ASDIRECTED [facility] Last Admin: 09/09/17 23:23 Dose: 50 mls/hr Lactated Ringer's (Ringers, Lactated) 1,000 mls @ 125 mls/hr IV ASDIRECTED [facility] Ibuprofen (Motrin) 400 mg PO Q6H PRN PRN Reason: Pain (mild 1-3) Losartan Potassium (Cozaar) 25 mg PO DAILY [facility] Last Admin: 09/09/17 08:55 Dose: 25 mg Morphine Sulfate (Morphine) 2 mg IVPUSH Q3H PRN PRN Reason: Pain (severe 7-10) Last Admin: 09/08/17 20:13 Dose: 2 mg Ondansetron HCl (Zofran) 4 mg IVPUSH Q4H PRN PRN Reason: Nausea Oxycodone HCl (Oxycodone) 5 mg PO Q4H PRN PRN Reason: Pain (moderate 4-6) Last Admin: 09/09/17 20:51 Dose: 5 mg Symbicort 160/4.5 (Mdi 2 Puffs) 1 each INH BID [facility] Last Admin: 09/09/17 23:16 Dose: Not Given Sodium Chloride (Saline Flush) 10 ml FLUSH ASDIRECTED PRN PRN Reason: Keep Vein Open Sodium Chloride (Saline Flush) 2.5 ml FLUSH ASDIRECTED PRN PRN Reason: Keep Vein Open Discontinued Medications Bupivacaine HCl (Marcaine 0.5%) Confirm Administered Dose 30 ml .ROUTE .STK-MED ONE Stop: 09/10/17 08:40 Heparin Sodium (Porcine) (Heparin Sodium) 5,000 units SUBCUT Q8H [facility] Last Admin: 09/08/17 06:24 Dose: 5,000 units Sodium Chloride (Normal Saline) 1,000 mls @ 999 mls/hr IV STAT ONE Stop: 09/07/17 17:27 Last Admin: 09/07/17 16:48 Dose: 999 mls/hr Ceftriaxone Sodium 1,000 mg/ (Lidocaine HCl) 4 mls @ 4 mls/sec IM ONETIME ONE Stop: 09/07/17 17:32 Last Admin: 09/07/17 18:05 Dose: Not Given Sodium Chloride (Normal Saline) 1,000 mls @ 999 mls/hr IV STAT ONE Stop: 09/07/17 18:31 Last Admin: 09/07/17 18:05 Dose: Not Given Sodium Chloride (Normal Saline) 1,000 mls @ 125 mls/hr IV STAT ONE Stop: 09/08/17 01:54 Last Admin: 09/07/17 18:14 Dose: 125 mls/hr Ceftriaxone Sodium/Dextrose 1 (gm/ Premix) 50 mls @ 100 mls/hr IV ONETIME ONE Stop: 09/07/17 18:33 Last Admin: 09/07/17 18:15 Dose: 100 mls/hr Sodium Chloride (Normal Saline) 1,000 mls @ 125 mls/hr IV ASDIRECTED [facility] Last Admin: 09/08/17 17:38 Dose: 125 mls/hr Daptomycin 500 mg/ Sodium (Chloride) 20 mls @ 400 mls/hr IVPUSH DAILY@2200 [facility] Last Admin: 09/08/17 22:32 Dose: 400 mls/hr
[2017-09-10] MEDS ORDERED: fentaNYL 100 MCG/2 ML SDV ONE ×3 (09:02→10:35)
[2017-09-10] MEDS ORDERED: Midazolam 1 MG/ML 2 ML SDV ONE (09:02)
[2017-09-10] MEDS ORDERED: Propofol 200 MG/20 ML SDV ONE (09:02)
[2017-09-10] MEDS ORDERED: Potassium Chloride 20 MEQ Tab.ER PO ONE ×2 (09:18→12:26)
[2017-09-10] MEDS ORDERED: diphenhydrAMINE 50 MG/ML SDV ONE (09:41)
[2017-09-10] MEDS ORDERED: Ondansetron 4 MG/2 ML SDV ONE (09:41)
[2017-09-10] MEDS ORDERED: fentaNYL 100 MCG/2 ML SDV IVPUSH PRN (09:50)
--- NOTE | 2017-09-10 11:37 | PCM.POSTAN ---
POST ANESTHESIA ASSESSMENT - MENTAL STATUS Mental Status: Alert, Oriented - VITAL SIGNS Pulse Rate: 82 SaO2: 95 Resp Rate: 17 Blood Pressure: 125/71 - RESPIRATORY Respiratory Status: Respiratory Rate WNL, Airway Patent, O2 Saturation Stable - CARDIOVASCULAR CV Status: Pulse Rate WNL, Blood Pressure Stable - GASTROINTESTINAL GI Status: No Symptoms - POST OP HYDRATION Hydration Status: Adequate & Stable
--- NOTE | 2017-09-10 11:38 | PN ---
HISTORY OF PRESENT ILLNESS: The patient is a 61-year-old male. The patient was admitted to [facility] on September 07, with cellulitis to the right lower extremity and ulcer on the right foot. He has a planned procedure today with incision and drainage of right foot ulcer. He was cleared for surgery by Dr. Hoyos, the attending physician. HOME MEDICATIONS: 1. Symbicort 160-4.5 mcg, 2 puffs inhaled twice a day. 2. Hydrochlorothiazide 25 mg p.o. daily. 3. Losartan 25 mg p.o. daily. PAST MEDICAL HISTORY: Hypertension, COPD, history of umbilical hernia. PAST SURGICAL HISTORY: Not available at this time. ALLERGIES: Codeine. EKG did show sinus rhythm. Does have a history of chronic back pain as well. The patient presents for surgery today, incision and drainage of right foot. No guarantees expressed or implied. VERN BAUGH /[id number]
--- NOTE | 2017-09-10 11:51 | PCM.OPNOTE ---
- General Post-Op/Procedure Note Date of Surgery/Procedure: 09/10/17 Operative Procedure(s): incision and drainage ulcer right foot Findings: consistent with dx Pre Op Diagnosis: infected ulcer right foot Post-Op Diagnosis: infected ulcer right foot Anesthesia Technique: General LMA Primary Surgeon: Marshal Langston Anesthesia Provider: Charlette Maynard Pathology: aerobic and anaerobic cultures taken periosteal bone sampled from fifth metatarsal right foot EBL in mLs: 20 Complications: none Condition: Good Free Text/Narrative:: Intake & Output 09/09/17 09/10/17 09/10/17 22:59 06:59 14:59 Intake Total 1260 688 0534 Output Total 650 900 Balance 950 -750 1150 materials: 3-0 vicryl, 4-0 vicryl, 4-0 prolene, 1/2 inch iodofore packing injectables: 10 ml 0.5% marcaine plain
--- NOTE | 2017-09-10 12:26 | PCM.PN ---
- Review of Systems Systems Review Comment:: foot pain controlled - Patient Data Vitals - Most Recent: Last Vital Signs Temp 37 C 09/10/17 11:17 Pulse 86 09/10/17 11:42 Resp 17 09/10/17 11:42 BP 129/79 09/10/17 11:42 Pulse Ox 95 09/10/17 11:42 Weight - Most Recent: 122.47 kg I&O - Last 24 Hours: Intake & Output 09/09/17 09/10/17 09/10/17 22:59 06:59 14:59 Intake Total 2757 264 5030 Output Total 650 900 Balance 950 -750 1150 Lab Results Last 24 Hours: Laboratory Results - last 24 hr 09/10/17 09/10/17 Range/Units 05:58 05:58 WBC 4.30 (4.0-11.0) K/uL RBC 3.67 L (4.50-5.90) M/uL Hgb 10.8 L (13.0-17.0) g/dL Hct 31.7 L (38.0-50.0) % MCV 86.4 (80.0-98.0) fL MCH 29.4 (27.0-32.0) pg MCHC 34.1 (31.0-37.0) g/dL RDW Std Deviation 40.6 (28.0-62.0) fl RDW Coeff of Tony 13 (11.0-15.0) % Plt Count 176 (150-400) K/uL MPV 11.30 (7.40-12.00) fL Neut % (Auto) 61.7 (48.0-80.0) % Lymph % (Auto) 21.4 (16.0-40.0) % [place] % (Auto) 15.1 H (0.0-15.0) % Eos % (Auto) 1.6 (0.0-7.0) % Baso % (Auto) 0.2 (0.0-1.5) % Neut # (Auto) 2.7 (1.4-5.7) K/uL Lymph # (Auto) 0.9 (0.6-2.4) K/uL [place] # (Auto) 0.7 (0.0-0.8) K/uL Eos # (Auto) 0.1 (0.0-0.7) K/uL Baso # (Auto) 0.0 (0.0-0.1) K/uL Nucleated RBC % 0.0 /100WBC Nucleated RBCs # 0 K/uL Sodium 137 (136-146) mmol/L Potassium 3.2 L (3.5-5.1) mmol/L Chloride 105 (98-110) mmol/L Carbon Dioxide 24 (21-31) mmol/L BUN 12 (6.0-23.0) mg/dL Creatinine 0.7 (0.6-1.5) mg/dL Est Cr Clr Drug Dosing 118.72 mL/min Estimated GFR (MDRD) > 60.0 ml/min Glucose 125 H (60-110) mg/dL Calcium 8.9 (8.8-10.8) mg/dL Med Orders - Current: Current Medications Acetaminophen (Tylenol) 650 mg PO Q4H PRN PRN Reason: Pain (Mild 1-3)/fever Last Admin: 09/09/17 14:49 Dose: 650 mg Fentanyl (Sublimaze) 50 mcg IVPUSH Q5M PRN PRN Reason: Pain (severe 7-10) Stop: 09/10/17 13:00 Hydrochlorothiazide (Hydrochlorothiazide) 25 mg PO DAILY [facility] Last Admin: 09/09/17 08:54 Dose: 25 mg Clindamycin Phosphate 600 mg/ (Premix) 50 mls @ 100 mls/hr IV Q8H [facility] Last Admin: 09/10/17 07:01 Dose: 100 mls/hr Sodium Chloride (Normal Saline) 1,000 mls @ 50 mls/hr IV ASDIRECTED [facility] Last Admin: 09/09/17 23:23 Dose: 50 mls/hr Lactated Ringer's (Ringers, Lactated) 1,000 mls @ 125 mls/hr IV ASDIRECTED [facility] Last Admin: 09/10/17 08:49 Dose: 125 mls/hr Ibuprofen (Motrin) 400 mg PO Q6H PRN PRN Reason: Pain (mild 1-3) Losartan Potassium (Cozaar) 25 mg PO DAILY [facility] Last Admin: 09/09/17 08:55 Dose: 25 mg Morphine Sulfate (Morphine) 2 mg IVPUSH Q3H PRN PRN Reason: Pain (severe 7-10) Last Admin: 09/08/17 20:13 Dose: 2 mg Ondansetron HCl (Zofran) 4 mg IVPUSH Q4H PRN PRN Reason: Nausea Oxycodone HCl (Oxycodone) 5 mg PO Q4H PRN PRN Reason: Pain (moderate 4-6) Last Admin: 09/09/17 20:51 Dose: 5 mg Symbicort 160/4.5 (Mdi 2 Puffs) 1 each INH BID [facility] Last Admin: 09/09/17 23:16 Dose: Not Given Sodium Chloride (Saline Flush) 10 ml FLUSH ASDIRECTED PRN PRN Reason: Keep Vein Open Sodium Chloride (Saline Flush) 2.5 ml FLUSH ASDIRECTED PRN PRN Reason: Keep Vein Open Discontinued Medications Bupivacaine HCl (Marcaine 0.5%) Confirm Administered Dose 30 ml .ROUTE .STK-MED ONE Stop: 09/10/17 08:40 Diphenhydramine HCl (Benadryl) Confirm Administered Dose 50 mg .ROUTE .STK-MED ONE Stop: 09/10/17 09:42 Fentanyl (Sublimaze) Confirm Administered Dose 100 mcg .ROUTE .STK-MED ONE Stop: 09/10/17 09:03 Fentanyl (Sublimaze) Confirm Administered Dose 100 mcg .ROUTE .STK-MED ONE Stop: 09/10/17 09:44 Fentanyl (Sublimaze) Confirm Administered Dose 100 mcg .ROUTE .STK-MED ONE Stop: 09/10/17 10:36 Heparin Sodium (Porcine) (Heparin Sodium) 5,000 units SUBCUT Q8H [facility] Last Admin: 09/08/17 06:24 Dose: 5,000 units Sodium Chloride (Normal Saline) 1,000 mls @ 999 mls/hr IV STAT ONE Stop: 09/07/17 17:27 Last Admin: 09/07/17 16:48 Dose: 999 mls/hr Ceftriaxone Sodium 1,000 mg/ (Lidocaine HCl) 4 mls @ 4 mls/sec IM ONETIME ONE Stop: 09/07/17 17:32 Last Admin: 09/07/17 18:05 Dose: Not Given Sodium Chloride (Normal Saline) 1,000 mls @ 999 mls/hr IV STAT ONE Stop: 09/07/17 18:31 Last Admin: 09/07/17 18:05 Dose: Not Given Sodium Chloride (Normal Saline) 1,000 mls @ 125 mls/hr IV STAT ONE Stop: 09/08/17 01:54 Last Admin: 09/07/17 18:14 Dose: 125 mls/hr Ceftriaxone Sodium/Dextrose 1 (gm/ Premix) 50 mls @ 100 mls/hr IV ONETIME ONE Stop: 09/07/17 18:33 Last Admin: 09/07/17 18:15 Dose: 100 mls/hr Sodium Chloride (Normal Saline) 1,000 mls @ 125 mls/hr IV ASDIRECTED [facility] Last Admin: 09/08/17 17:38 Dose: 125 mls/hr Daptomycin 500 mg/ Sodium (Chloride) 20 mls @ 400 mls/hr IVPUSH DAILY@2200 [facility] Last Admin: 09/08/17 22:32 Dose: 400 mls/hr Midazolam HCl (Versed 1 Mg/Ml) Confirm Administered Dose 4 mg .ROUTE .STK-MED ONE Stop: 09/10/17 09:03 Ondansetron HCl (Zofran) Confirm Administered Dose 4 mg .ROUTE .STK-MED ONE Stop: 09/10/17 09:42 Potassium Chloride (Klor-Con M20) 40 meq PO ONETIME ONE Stop: 09/10/17 09:19 Propofol (Diprivan 20 Ml) Confirm Administered Dose 200 mg .ROUTE .STK-MED ONE Stop: 09/10/17 09:03 - Exam General: Alert Lungs: Clear to Auscultation, Normal Respiratory Effort Cardiovascular: Regular Rate, Regular Rhythm GI/Abdominal Exam: Normal Bowel Sounds, Soft, Non-Tender, No Organomegaly, No Distention, No Abnormal Bruit, No Mass, Pelvis Stable Extremities: Other (right foot bandaged) - Problem List Review Problem List Initiated/Reviewed/Updated: Yes - My Orders Last 24 Hours: My Active Orders 09/10/17 Breakfast NPO After Midnight [Nothing per Oral After Midnight Diet] [DIET] - Plan Plan:: 61 yo male admitted with right foot cellulitis with ulcer to R foot 1. MRSA cellulitis with suspected abscess: s/p I&D this morning by Dr. Langston, will continue clindamycin. 2. HTN: Stable. Continue Cozaar and HCTZ. 3. COPD: Stable. Continue Symbicort. VTE prophylaxis: Hold heparin for now, SCDs to left leg Dispo: 2-3 days pending podiatry consult.
[2017-09-10] MEDS: Losartan 50 MG Tab PO SCH (12:33)
[2017-09-10] MEDS: SYMBICORT INH SCH ×2 (12:34→21:42)
[2017-09-10] MEDS: MDI INH SCH ×2 (12:34→21:42)
[2017-09-10] MEDS: Hydrochlorothiazide 25 MG Tab PO SCH (12:34)
--- NOTE | 2017-09-10 17:17 | OR ---
SURGEON: Marshal Langston DPM DATE OF PROCEDURE: 09/10/2017 PREOPERATIVE DIAGNOSIS: Infected ulcer, right foot. POSTOPERATIVE DIAGNOSIS: Infected ulcer, right foot. OPERATIVE PROCEDURE: Incision and drainage of ulcer of right foot. FINDINGS: Consistent with diagnosis. ANESTHESIA: General. ESTIMATED BLOOD LOSS: 20 mL. HEMOSTASIS: Esmarch bandage used for exsanguination and affixed proximal to the ankle. MATERIALS: 3-0 Vicryl, 4-0 Vicryl, 4-0 Prolene, 0.5 inch iodoform packing. COMPLICATIONS: None. CONDITION: The patient tolerated the procedure and anesthesia well, was transported to recovery room with vital signs stable and neurovascular status intact to all toes of the right foot. JUSTIFICATION FOR THE PROCEDURE: The patient was admitted to the hospital on September 07 for cellulitis of the right lower extremity and infected ulcer of the right foot. I was consulted and first saw the patient yesterday and did note there was still small amount of continuing purulent drainage from the ulcer as well as a significant area of fluctuance surrounding and proximal and superior to the ulcer indicating to me that this was more extensive infection with potential tunneling. Discussed treatment with the patient. Recommended that he allow consent for incision and drainage surgery to fully drain and clean out the infected area and also to explore for any potential tunneling and better assess the depth of this ulcer. The patient consented and surgery was scheduled for today. No guarantees have been expressed or implied, and the patient signed the consent form and was placed in the patient's chart. PROCEDURE IN DETAIL: Incision and drainage of ulcer of right foot. The patient was brought to the operating room, placed on the operating table in a supine position, at which time anesthesia was administered and an aseptic scrub and drape was performed about the patient's right lower extremity. A thigh tourniquet was placed in the event that would be needed; however, it was not utilized during the surgery. Hemostasis was provided through the use of an Esmarch bandage exsanguination and then maintaining the bandage as the tourniquet just above the ankle. Using the ulcer as the starting point, which was located over the right lateral mid foot just distal to the base of the 5th metatarsal, an incision was made running from superior to inferior terminating at the ulcer, and a second incision was made proximal to the ulcer running distal to proximal. Each incision was approximately 3 cm in length. Dissection was carried down with sharp dissection down to the level of tendon, taking time to cut, clamp, ligate, and/or retract away any small vascular structures along the way. Care was taken not to sever any tendinous material and probing was done utilizing a combination of [place] elevator and small curved mosquito hemostat. Tunneling was noted running distally approximately 3 cm. However, there was very little purulent drainage noted there. Probing did go immediately to bone along the underside of the 5th metatarsal shaft. The entire area was flushed using a pulse lavage and reinspected. Devitalized necrotic tissue was removed. There was a small amount of purulence prior to pulse lavage. No further purulence noted after pulse lavage, pulse lavage was then performed again. The area was dried in preparation for closure and was reinspected first noting no further purulence. A small amount of periosteal bone was removed using the small bone rongeur and sent to pathology for examination. Swab cultures were also taken of the deepest part of the wound along the bone for aerobic, anaerobic analysis, and Gram stain. After one final flushing with pulse lavage, the area was dried again in preparation for layered soft tissue closure. The deeper tissue was reapproximated with 3-0 Vicryl sutures, subcutaneous tissue with 4-0 Vicryl suture, and the superficial skin with 4-0 Prolene suture. After application of the 3-0 suture, the ulcer was packed with 0.5 inch iodophor packing. Prior to continuing the suturing, the entire area was covered with Betadine-soaked Xeroform gauze, covered by 4 x 4 gauze, Kerlix roll, and secured with an Rodolfo bandage. Two pills were placed on the patient's leg and the patient tourniquet in the form of the Esmarch bandage was removed with an immediate hyperemic response to all digits of the right foot. The patient tolerated the procedure and the anesthesia well with no complications noted. Vital signs stable and neurovascular status is intact as before to the right foot, and the patient was transported from the operating room to recovery room having tolerated the procedure and the anesthesia well. The patient is being readmitted to his room in the hospital. Wound care instructions have been given for daily wound care. I will be following the patient and will next plan to see the patient either late tomorrow or on Tuesday. Further treatment will depend on the results of the cultures taken. VERN BAUGH /[id number]
[2017-09-10] MEDS: oxyCODONE 5 MG Tab PO PRN (17:29)
[2017-09-11] MEDS: oxyCODONE 5 MG Tab PO PRN ×2 (05:03→18:10)
[2017-09-11 05:39] LABS: CHLORIDE,CL 108 mmol/L (98-110); SODIUM,NA 141 mmol/L (136-146)
[2017-09-11] MEDS: Clindamycin Phosphate in D5W 600 MG in Premix Bag 50 BAG IV SCH ×6 (06:13→22:20)
[2017-09-11] MEDS: Lactated Ringers 1,000 ML IV SCH (07:05)
[2017-09-11] MEDS: Sodium Chloride 0.9% 1,000 ML IV SCH (07:50)
[2017-09-11] MEDS: Losartan 50 MG Tab PO SCH (09:19)
[2017-09-11] MEDS: Hydrochlorothiazide 25 MG Tab PO SCH (09:19)
[2017-09-11] MEDS: MDI INH SCH ×2 (09:19→22:21)
[2017-09-11] MEDS: SYMBICORT INH SCH ×2 (09:19→22:21)
--- NOTE | 2017-09-11 11:19 | PCM.PN ---
- Review of Systems Systems Review Comment:: foot pain controlled - Patient Data Vitals - Most Recent: Last Vital Signs Temp 36.6 C 09/11/17 08:00 Pulse 85 09/11/17 08:00 Resp 20 09/11/17 08:00 BP 128/71 09/11/17 09:19 Pulse Ox 91 L 09/11/17 08:00 Weight - Most Recent: 122.47 kg I&O - Last 24 Hours: Intake & Output 09/10/17 09/11/17 09/11/17 22:59 06:59 14:59 Intake Total 460 400 100 Output Total 330 120 Balance 130 280 100 Lab Results Last 24 Hours: Laboratory Results - last 24 hr 09/11/17 09/11/17 Range/Units 04:50 04:50 WBC 5.07 (4.0-11.0) K/uL RBC 3.56 L (4.50-5.90) M/uL Hgb 10.6 L (13.0-17.0) g/dL Hct 31.6 L (38.0-50.0) % MCV 88.8 (80.0-98.0) fL MCH 29.8 (27.0-32.0) pg MCHC 33.5 (31.0-37.0) g/dL RDW Std Deviation 42.3 (28.0-62.0) fl RDW Coeff of Tony 13 (11.0-15.0) % Plt Count 192 (150-400) K/uL MPV 10.80 (7.40-12.00) fL Neut % (Auto) 65.9 (48.0-80.0) % Lymph % (Auto) 20.3 (16.0-40.0) % [place] % (Auto) 11.4 (0.0-15.0) % Eos % (Auto) 2.2 (0.0-7.0) % Baso % (Auto) 0.2 (0.0-1.5) % Neut # (Auto) 3.3 (1.4-5.7) K/uL Lymph # (Auto) 1.0 (0.6-2.4) K/uL [place] # (Auto) 0.6 (0.0-0.8) K/uL Eos # (Auto) 0.1 (0.0-0.7) K/uL Baso # (Auto) 0.0 (0.0-0.1) K/uL Nucleated RBC % 0.0 /100WBC Nucleated RBCs # 0 K/uL Sodium 141 (136-146) mmol/L Potassium 4.2 (3.5-5.1) mmol/L Chloride 108 (98-110) mmol/L Carbon Dioxide 24 (21-31) mmol/L BUN 11 (6.0-23.0) mg/dL Creatinine 0.8 (0.6-1.5) mg/dL Est Cr Clr Drug Dosing 103.88 mL/min Estimated GFR (MDRD) > 60.0 ml/min Glucose 104 (60-110) mg/dL Calcium 8.9 (8.8-10.8) mg/dL [place] Results Last 24 Hours: Microbiology 09/10/17 10:40 Gram Stain - Final Foot, Right Med Orders - Current: Current Medications Acetaminophen (Tylenol) 650 mg PO Q4H PRN PRN Reason: Pain (Mild 1-3)/fever Last Admin: 09/09/17 14:49 Dose: 650 mg Hydrochlorothiazide (Hydrochlorothiazide) 25 mg PO DAILY [facility] Last Admin: 09/11/17 09:19 Dose: 25 mg Clindamycin Phosphate 600 mg/ (Premix) 50 mls @ 100 mls/hr IV Q8H [facility] Last Admin: 09/11/17 06:13 Dose: 100 mls/hr Sodium Chloride (Normal Saline) 1,000 mls @ 50 mls/hr IV ASDIRECTED [facility] Last Admin: 09/11/17 07:50 Dose: 50 mls/hr Ibuprofen (Motrin) 400 mg PO Q6H PRN PRN Reason: Pain (mild 1-3) Losartan Potassium (Cozaar) 25 mg PO DAILY [facility] Last Admin: 09/11/17 09:19 Dose: 25 mg Morphine Sulfate (Morphine) 2 mg IVPUSH Q3H PRN PRN Reason: Pain (severe 7-10) Last Admin: 09/08/17 20:13 Dose: 2 mg Ondansetron HCl (Zofran) 4 mg IVPUSH Q4H PRN PRN Reason: Nausea Oxycodone HCl (Oxycodone) 5 mg PO Q4H PRN PRN Reason: Pain (moderate 4-6) Last Admin: 09/11/17 05:03 Dose: 5 mg Symbicort 160/4.5 (Mdi 2 Puffs) 1 each INH BID [facility] Last Admin: 09/11/17 09:19 Dose: Not Given Sodium Chloride (Saline Flush) 10 ml FLUSH ASDIRECTED PRN PRN Reason: Keep Vein Open Sodium Chloride (Saline Flush) 2.5 ml FLUSH ASDIRECTED PRN PRN Reason: Keep Vein Open Discontinued Medications Bupivacaine HCl (Marcaine 0.5%) Confirm Administered Dose 30 ml .ROUTE .STK-MED ONE Stop: 09/10/17 08:40 Diphenhydramine HCl (Benadryl) Confirm Administered Dose 50 mg .ROUTE .STK-MED ONE Stop: 09/10/17 09:42 Fentanyl (Sublimaze) Confirm Administered Dose 100 mcg .ROUTE .STK-MED ONE Stop: 09/10/17 09:03 Fentanyl (Sublimaze) Confirm Administered Dose 100 mcg .ROUTE .STK-MED ONE Stop: 09/10/17 09:44 Fentanyl (Sublimaze) 50 mcg IVPUSH Q5M PRN PRN Reason: Pain (severe 7-10) Stop: 09/10/17 13:00 Fentanyl (Sublimaze) Confirm Administered Dose 100 mcg .ROUTE .STK-MED ONE Stop: 09/10/17 10:36 Heparin Sodium (Porcine) (Heparin Sodium) 5,000 units SUBCUT Q8H [facility] Last Admin: 09/08/17 06:24 Dose: 5,000 units Sodium Chloride (Normal Saline) 1,000 mls @ 999 mls/hr IV STAT ONE Stop: 09/07/17 17:27 Last Admin: 09/07/17 16:48 Dose: 999 mls/hr Ceftriaxone Sodium 1,000 mg/ (Lidocaine HCl) 4 mls @ 4 mls/sec IM ONETIME ONE Stop: 09/07/17 17:32 Last Admin: 09/07/17 18:05 Dose: Not Given Sodium Chloride (Normal Saline) 1,000 mls @ 999 mls/hr IV STAT ONE Stop: 09/07/17 18:31 Last Admin: 09/07/17 18:05 Dose: Not Given Sodium Chloride (Normal Saline) 1,000 mls @ 125 mls/hr IV STAT ONE Stop: 02/01/18 01:54 Last Admin: 09/07/17 18:14 Dose: 125 mls/hr Ceftriaxone Sodium/Dextrose 1 (gm/ Premix) 50 mls @ 100 mls/hr IV ONETIME ONE Stop: 09/07/17 18:33 Last Admin: 09/07/17 18:15 Dose: 100 mls/hr Sodium Chloride (Normal Saline) 1,000 mls @ 125 mls/hr IV ASDIRECTED [facility] Last Admin: 09/08/17 17:38 Dose: 125 mls/hr Daptomycin 500 mg/ Sodium (Chloride) 20 mls @ 400 mls/hr IVPUSH DAILY@2200 [facility] Last Admin: 09/08/17 22:32 Dose: 400 mls/hr Lactated Ringer's (Ringers, Lactated) 1,000 mls @ 125 mls/hr IV ASDIRECTED [facility] Last Admin: 09/11/17 07:05 Dose: 125 mls/hr Midazolam HCl (Versed 1 Mg/Ml) Confirm Administered Dose 4 mg .ROUTE .STK-MED ONE Stop: 09/10/17 09:03 Ondansetron HCl (Zofran) Confirm Administered Dose 4 mg .ROUTE .STK-MED ONE Stop: 09/10/17 09:42 Potassium Chloride (Klor-Con M20) 40 meq PO ONETIME ONE Stop: 09/10/17 09:19 Last Admin: 09/10/17 12:33 Dose: 40 meq Potassium Chloride (Klor-Con M20) 40 meq PO ONETIME ONE Stop: 09/10/17 12:27 Last Admin: 09/10/17 13:19 Dose: Not Given Propofol (Diprivan 20 Ml) Confirm Administered Dose 200 mg .ROUTE .STK-MED ONE Stop: 09/10/17 09:03 - Exam General: Alert, Oriented Lungs: Clear to Auscultation, Normal Respiratory Effort Cardiovascular: Regular Rate, Regular Rhythm GI/Abdominal Exam: Soft, Non-Tender Extremities: Other (rigth foot in bandage) - Problem List Review Problem List Initiated/Reviewed/Updated: Yes - Plan Plan:: 61 yo male admitted with right foot cellulitis with ulcer to R foot 1. MRSA cellulitis with suspected abscess: s/p I&D yesterday by Dr. Langston, will continue clindamycin. 2. HTN: Stable. Continue Cozaar and HCTZ. 3. COPD: Stable. Continue Symbicort. VTE prophylaxis: Hold heparin for now, SCDs to left leg
--- NOTE | 2017-09-11 17:59 | PCM48HPAN ---
Post Anesthesia Note - EVALUATION WITHIN 48HRS OF ANESTHETIC Vital Signs in Normal Range: Yes Patient Participated in Evaluation: Yes Respiratory Function Stable: Yes Airway Patent: Yes Cardiovascular Function Stable: Yes Hydration Status Stable: Yes Pain Control Satisfactory: Yes Nausea and Vomiting Control Satisfactory: Yes Mental Status Recovered: Yes
--- NOTE | 2017-09-11 18:19 | PCM.CONSN ---
- General Info Date of Service: 09/11/17 Admission Dx/Problem (Free Text): Admission Diagnosis/Problem Admission Diagnosis/Problem Cellulitis and abscess of foot excluding toe status post 1 day after incision and drainage right foot ulcer Subjective Update: Patient is sitting in bed, says he has to sit up from time to time due to his back and the bed. Says he feels well and can now feel his right leg again which is an improvement. Functional Status: Reports: Pain Controlled - Patient Data Vitals - Most Recent: Last Vital Signs Temp 36.9 C 09/11/17 16:00 Pulse 71 09/11/17 16:00 Resp 22 H 09/11/17 16:00 BP 126/70 09/11/17 16:00 Pulse Ox 94 L 09/11/17 16:00 Weight - Most Recent: 122.47 kg I&O - Last 24 Hours: Intake & Output 09/11/17 09/11/17 09/11/17 06:59 14:59 22:59 Intake Total 400 100 586 Output Total 120 Balance 280 100 586 Lab Results Last 24 Hours: Laboratory Results - last 24 hr 09/11/17 09/11/17 Range/Units 04:50 04:50 WBC 5.07 (4.0-11.0) K/uL RBC 3.56 L (4.50-5.90) M/uL Hgb 10.6 L (13.0-17.0) g/dL Hct 31.6 L (38.0-50.0) % MCV 88.8 (80.0-98.0) fL MCH 29.8 (27.0-32.0) pg MCHC 33.5 (31.0-37.0) g/dL RDW Std Deviation 42.3 (28.0-62.0) fl RDW Coeff of Tony 13 (11.0-15.0) % Plt Count 192 (150-400) K/uL MPV 10.80 (7.40-12.00) fL Neut % (Auto) 65.9 (48.0-80.0) % Lymph % (Auto) 20.3 (16.0-40.0) % [place] % (Auto) 11.4 (0.0-15.0) % Eos % (Auto) 2.2 (0.0-7.0) % Baso % (Auto) 0.2 (0.0-1.5) % Neut # (Auto) 3.3 (1.4-5.7) K/uL Lymph # (Auto) 1.0 (0.6-2.4) K/uL [place] # (Auto) 0.6 (0.0-0.8) K/uL Eos # (Auto) 0.1 (0.0-0.7) K/uL Baso # (Auto) 0.0 (0.0-0.1) K/uL Nucleated RBC % 0.0 /100WBC Nucleated RBCs # 0 K/uL Sodium 141 (136-146) mmol/L Potassium 4.2 (3.5-5.1) mmol/L Chloride 108 (98-110) mmol/L Carbon Dioxide 24 (21-31) mmol/L BUN 11 (6.0-23.0) mg/dL Creatinine 0.8 (0.6-1.5) mg/dL Est Cr Clr Drug Dosing 103.88 mL/min Estimated GFR (MDRD) > 60.0 ml/min Glucose 104 (60-110) mg/dL Calcium 8.9 (8.8-10.8) mg/dL Esvin Results Last 24 Hours: Microbiology 09/10/17 10:40 Gram Stain - Final Foot, Right Med Orders - Current: Current Medications Acetaminophen (Tylenol) 650 mg PO Q4H PRN PRN Reason: Pain (Mild 1-3)/fever Last Admin: 09/09/17 14:49 Dose: 650 mg Hydrochlorothiazide (Hydrochlorothiazide) 25 mg PO DAILY [facility] Last Admin: 09/11/17 09:19 Dose: 25 mg Clindamycin Phosphate 600 mg/ (Premix) 50 mls @ 100 mls/hr IV Q8H [facility] Last Admin: 09/11/17 13:34 Dose: 100 mls/hr Sodium Chloride (Normal Saline) 1,000 mls @ 50 mls/hr IV ASDIRECTED [facility] Last Admin: 09/11/17 07:50 Dose: 50 mls/hr Ibuprofen (Motrin) 400 mg PO Q6H PRN PRN Reason: Pain (mild 1-3) Losartan Potassium (Cozaar) 25 mg PO DAILY [facility] Last Admin: 09/11/17 09:19 Dose: 25 mg Morphine Sulfate (Morphine) 2 mg IVPUSH Q3H PRN PRN Reason: Pain (severe 7-10) Last Admin: 09/08/17 20:13 Dose: 2 mg Ondansetron HCl (Zofran) 4 mg IVPUSH Q4H PRN PRN Reason: Nausea Oxycodone HCl (Oxycodone) 5 mg PO Q4H PRN PRN Reason: Pain (moderate 4-6) Last Admin: 09/11/17 18:10 Dose: 5 mg Symbicort 160/4.5 (Mdi 2 Puffs) 1 each INH BID [facility] Last Admin: 09/11/17 09:19 Dose: Not Given Sodium Chloride (Saline Flush) 10 ml FLUSH ASDIRECTED PRN PRN Reason: Keep Vein Open Sodium Chloride (Saline Flush) 2.5 ml FLUSH ASDIRECTED PRN PRN Reason: Keep Vein Open Discontinued Medications Bupivacaine HCl (Marcaine 0.5%) Confirm Administered Dose 30 ml .ROUTE .STK-MED ONE Stop: 09/10/17 08:40 Diphenhydramine HCl (Benadryl) Confirm Administered Dose 50 mg .ROUTE .STK-MED ONE Stop: 09/10/17 09:42 Fentanyl (Sublimaze) Confirm Administered Dose 100 mcg .ROUTE .STK-MED ONE Stop: 09/10/17 09:03 Fentanyl (Sublimaze) Confirm Administered Dose 100 mcg .ROUTE .STK-MED ONE Stop: 09/10/17 09:44 Fentanyl (Sublimaze) 50 mcg IVPUSH Q5M PRN PRN Reason: Pain (severe 7-10) Stop: 09/10/17 13:00 Fentanyl (Sublimaze) Confirm Administered Dose 100 mcg .ROUTE .STK-MED ONE Stop: 09/10/17 10:36 Heparin Sodium (Porcine) (Heparin Sodium) 5,000 units SUBCUT Q8H [facility] Last Admin: 09/08/17 06:24 Dose: 5,000 units Sodium Chloride (Normal Saline) 1,000 mls @ 999 mls/hr IV STAT ONE Stop: 09/07/17 17:27 Last Admin: 09/07/17 16:48 Dose: 999 mls/hr Ceftriaxone Sodium 1,000 mg/ (Lidocaine HCl) 4 mls @ 4 mls/sec IM ONETIME ONE Stop: 09/07/17 17:32 Last Admin: 09/07/17 18:05 Dose: Not Given Sodium Chloride (Normal Saline) 1,000 mls @ 999 mls/hr IV STAT ONE Stop: 09/07/17 18:31 Last Admin: 09/07/17 18:05 Dose: Not Given Sodium Chloride (Normal Saline) 1,000 mls @ 125 mls/hr IV STAT ONE Stop: 09/08/17 01:54 Last Admin: 09/07/17 18:14 Dose: 125 mls/hr Ceftriaxone Sodium/Dextrose 1 (gm/ Premix) 50 mls @ 100 mls/hr IV ONETIME ONE Stop: 09/07/17 18:33 Last Admin: 09/07/17 18:15 Dose: 100 mls/hr Sodium Chloride (Normal Saline) 1,000 mls @ 125 mls/hr IV ASDIRECTED [facility] Last Admin: 09/08/17 17:38 Dose: 125 mls/hr Daptomycin 500 mg/ Sodium (Chloride) 20 mls @ 400 mls/hr IVPUSH DAILY@2200 [facility] Last Admin: 09/08/17 22:32 Dose: 400 mls/hr Lactated Ringer's (Ringers, Lactated) 1,000 mls @ 125 mls/hr IV ASDIRECTED [facility] Last Admin: 09/11/17 07:05 Dose: 125 mls/hr Midazolam HCl (Versed 1 Mg/Ml) Confirm Administered Dose 4 mg .ROUTE .STK-MED ONE Stop: 09/10/17 09:03 Ondansetron HCl (Zofran) Confirm Administered Dose 4 mg .ROUTE .STK-MED ONE Stop: 09/10/17 09:42 Potassium Chloride (Klor-Con M20) 40 meq PO ONETIME ONE Stop: 09/10/17 09:19 Last Admin: 09/10/17 12:33 Dose: 40 meq Potassium Chloride (Klor-Con M20) 40 meq PO ONETIME ONE Stop: 09/10/17 12:27 Last Admin: 09/10/17 13:19 Dose: Not Given Propofol (Diprivan 20 Ml) Confirm Administered Dose 200 mg .ROUTE .STK-MED ONE Stop: 09/10/17 09:03 - Exam Wound/Incisions: Dressing Dry and Intact Psy/Mental Status: Alert, Normal Affect, Normal Mood Physical Findings Comments:: Dressing done by Nurse a few hours ago. Dressing is clean dry and intact now - nurse reports minimal drainage and was able to remove and insert fresh packing to ulcer. I am leaving dressing intact at this time. Erythema and edema to right lower extremity is reducing noticeably, though still present and distal foot is boat tender at toes and MPJ when pressure is applied. Consult PN Assessment/Plan POD#: 1 Procedures: Procedures PT EVAL LOW COMPLEX 20 MIN (09/07/17) RMVL DEVITAL TIS 20 CM/< (09/07/17) UPR/L XTREMITY ART 2 LEVELS (09/07/17) US EXAM ABDO BACK WALL MOORE (11/29/16) X-RAY EXAM OF FOOT (08/16/17) incision and drainage of right foot ulcer (1) Cellulitis of right foot SNOMED Code(s): 652996900 Code(s): L03.115 - CELLULITIS OF RIGHT LOWER LIMB Current Visit: Yes Assessment:: continues to improve with reduced edema and erythema. (2) Cellulitis of right leg SNOMED Code(s): 251704756 Code(s): L03.115 - CELLULITIS OF RIGHT LOWER LIMB Current Visit: Yes Assessment:: Continues to improve with reduced edema and erythema. (3) Right foot ulcer SNOMED Code(s): 58039450 Code(s): L97.519 - NON-PRS CHRONIC ULCER OTH PRT RIGHT FOOT W UNSP SEVERITY Current Visit: Yes Qualifiers: Non-pressure ulcer stage: with necrosis of muscle Qualified Code(s): L97.513 - Non-pressure chronic ulcer of other part of right foot with necrosis of muscle Assessment:: The ulcer probes to bone. Osteomyelitis cannot be excluded. Bone sample pending with pathology from procedure yesterday. Problem List Initiated/Reviewed/Updated: Yes My Orders Last 24 Hours: My Active Orders 09/11/17 11:29 Wound Care [RC] DAILY Plan: 1. Following with daily dressing changes status post 1 day after incision and drainage of right foot ulcer 2. Cultures pending. 3. Bone specimen pending with pathology. If positive for osteomyelitis, this will guide plan but if negative patient must still be followed closely for signs of osteomyelitis. 4 Continue IV abx for MRSA 5. Discussed patient with Dr. Hoyos and will consider discharge planning again tomorrow. 6. Will follow.
[2017-09-12] MEDS: Sodium Chloride 0.9% 1,000 ML IV SCH (06:42)
[2017-09-12] MEDS: Clindamycin Phosphate in D5W 600 MG in Premix Bag 50 BAG IV SCH ×6 (06:42→21:48)
--- NOTE | 2017-09-12 07:47 | PCM.PN ---
- General Info Date of Service: 09/12/17 Admission Dx/Problem (Free Text): Admission Diagnosis/Problem Admission Diagnosis/Problem Cellulitis and abscess of foot Subjective Update: Doing well this morning, pain controlled. No other complaints. No chest pain or SOB. Functional Status: Reports: Pain Controlled, Tolerating Diet, Ambulating, Urinating - Review of Systems General: Reports: No Symptoms HEENT: Reports: No Symptoms. Denies: Sore Throat, Rhinitis Pulmonary: Reports: No Symptoms. Denies: Shortness of Breath Cardiovascular: Reports: No Symptoms. Denies: Chest Pain Gastrointestinal: Reports: No Symptoms. Denies: Abdominal Pain, Diarrhea, Nausea, Vomiting Skin: Reports: Other (healing wound to R foot.) Neurological: Reports: No Symptoms Psychiatric: Reports: No Symptoms - Patient Data Vitals - Most Recent: Last Vital Signs Temp 98 F 09/12/17 04:48 Pulse 68 09/12/17 04:48 Resp 18 09/12/17 04:48 BP 140/74 09/12/17 04:48 Pulse Ox 93 L 09/12/17 04:48 Weight - Most Recent: 122.47 kg I&O - Last 24 Hours: Intake & Output 09/11/17 09/12/17 09/12/17 22:59 06:59 14:59 Intake Total 1861 1650 Output Total 1940 1100 Balance -79 550 Med Orders - Current: Current Medications Acetaminophen (Tylenol) 650 mg PO Q4H PRN PRN Reason: Pain (Mild 1-3)/fever Last Admin: 09/09/17 14:49 Dose: 650 mg Hydrochlorothiazide (Hydrochlorothiazide) 25 mg PO DAILY [facility] Last Admin: 09/11/17 09:19 Dose: 25 mg Clindamycin Phosphate 600 mg/ (Premix) 50 mls @ 100 mls/hr IV Q8H [facility] Last Admin: 09/12/17 06:42 Dose: 100 mls/hr Ibuprofen (Motrin) 400 mg PO Q6H PRN PRN Reason: Pain (mild 1-3) Losartan Potassium (Cozaar) 25 mg PO DAILY [facility] Last Admin: 09/11/17 09:19 Dose: 25 mg Morphine Sulfate (Morphine) 2 mg IVPUSH Q3H PRN PRN Reason: Pain (severe 7-10) Last Admin: 09/08/17 20:13 Dose: 2 mg Ondansetron HCl (Zofran) 4 mg IVPUSH Q4H PRN PRN Reason: Nausea Oxycodone HCl (Oxycodone) 5 mg PO Q4H PRN PRN Reason: Pain (moderate 4-6) Last Admin: 09/11/17 18:10 Dose: 5 mg Symbicort 160/4.5 (Mdi 2 Puffs) 1 each INH BID [facility] Last Admin: 09/11/17 22:21 Dose: 1 each Sodium Chloride (Saline Flush) 10 ml FLUSH ASDIRECTED PRN PRN Reason: Keep Vein Open Sodium Chloride (Saline Flush) 2.5 ml FLUSH ASDIRECTED PRN PRN Reason: Keep Vein Open Discontinued Medications Bupivacaine HCl (Marcaine 0.5%) Confirm Administered Dose 30 ml .ROUTE .STK-MED ONE Stop: 09/10/17 08:40 Diphenhydramine HCl (Benadryl) Confirm Administered Dose 50 mg .ROUTE .STK-MED ONE Stop: 09/10/17 09:42 Fentanyl (Sublimaze) Confirm Administered Dose 100 mcg .ROUTE .STK-MED ONE Stop: 09/10/17 09:03 Fentanyl (Sublimaze) Confirm Administered Dose 100 mcg .ROUTE .STK-MED ONE Stop: 09/10/17 09:44 Fentanyl (Sublimaze) 50 mcg IVPUSH Q5M PRN PRN Reason: Pain (severe 7-10) Stop: 09/10/17 13:00 Fentanyl (Sublimaze) Confirm Administered Dose 100 mcg .ROUTE .STK-MED ONE Stop: 09/10/17 10:36 Heparin Sodium (Porcine) (Heparin Sodium) 5,000 units SUBCUT Q8H [facility] Last Admin: 09/08/17 06:24 Dose: 5,000 units Sodium Chloride (Normal Saline) 1,000 mls @ 999 mls/hr IV STAT ONE Stop: 09/07/17 17:27 Last Admin: 09/07/17 16:48 Dose: 999 mls/hr Ceftriaxone Sodium 1,000 mg/ (Lidocaine HCl) 4 mls @ 4 mls/sec IM ONETIME ONE Stop: 09/07/17 17:32 Last Admin: 09/07/17 18:05 Dose: Not Given Sodium Chloride (Normal Saline) 1,000 mls @ 999 mls/hr IV STAT ONE Stop: 09/07/17 18:31 Last Admin: 09/07/17 18:05 Dose: Not Given Sodium Chloride (Normal Saline) 1,000 mls @ 125 mls/hr IV STAT ONE Stop: 09/08/17 01:54 Last Admin: 09/07/17 18:14 Dose: 125 mls/hr Ceftriaxone Sodium/Dextrose 1 (gm/ Premix) 50 mls @ 100 mls/hr IV ONETIME ONE Stop: 09/07/17 18:33 Last Admin: 09/07/17 18:15 Dose: 100 mls/hr Sodium Chloride (Normal Saline) 1,000 mls @ 125 mls/hr IV ASDIRECTED [facility] Last Admin: 09/08/17 17:38 Dose: 125 mls/hr Daptomycin 500 mg/ Sodium (Chloride) 20 mls @ 400 mls/hr IVPUSH DAILY@2200 [facility] Last Admin: 09/08/17 22:32 Dose: 400 mls/hr Sodium Chloride (Normal Saline) 1,000 mls @ 50 mls/hr IV ASDIRECTED [facility] Last Admin: 09/12/17 06:42 Dose: 50 mls/hr Lactated Ringer's (Ringers, Lactated) 1,000 mls @ 125 mls/hr IV ASDIRECTED [facility] Last Admin: 09/11/17 07:05 Dose: 125 mls/hr Midazolam HCl (Versed 1 Mg/Ml) Confirm Administered Dose 4 mg .ROUTE .STK-MED ONE Stop: 09/10/17 09:03 Ondansetron HCl (Zofran) Confirm Administered Dose 4 mg .ROUTE .STK-MED ONE Stop: 09/10/17 09:42 Potassium Chloride (Klor-Con M20) 40 meq PO ONETIME ONE Stop: 09/10/17 09:19 Last Admin: 09/10/17 12:33 Dose: 40 meq Potassium Chloride (Klor-Con M20) 40 meq PO ONETIME ONE Stop: 09/10/17 12:27 Last Admin: 09/10/17 13:19 Dose: Not Given Propofol (Diprivan 20 Ml) Confirm Administered Dose 200 mg .ROUTE .STK-MED ONE Stop: 09/10/17 09:03 - Exam General: Alert, Oriented, Cooperative HEENT: Pupils Equal, Pupils Reactive, EOMI, Mucous Membr. Moist/[place] Lungs: Clear to Auscultation, Normal Respiratory Effort Cardiovascular: Regular Rate, Regular Rhythm GI/Abdominal Exam: Normal Bowel Sounds, Soft, Non-Tender, No Organomegaly, No Distention, No Abnormal Bruit, No Mass, Pelvis Stable Extremities: Pedal Edema (+1 to R foot, improved with elevation of limb. ) Wound/Incisions: Dressing Dry and Intact, Erythema Improving (Erythema to lower leg much improved, some erythema continues to R foot. Dressing intact, will leave intact until Dr Langston arrives, will assess together. ) Psy/Mental Status: Alert, Normal Affect, Normal Mood - Problem List & Annotations (1) Right foot ulcer SNOMED Code(s): 37042086 Code(s): L97.519 - NON-PRS CHRONIC ULCER OTH PRT RIGHT FOOT W UNSP SEVERITY Status: Acute Current Visit: Yes Qualifiers: Non-pressure ulcer stage: with necrosis of muscle Qualified Code(s): L97.513 - Non-pressure chronic ulcer of other part of right foot with necrosis of muscle (2) Cellulitis of right leg SNOMED Code(s): 511230729 Code(s): L03.115 - CELLULITIS OF RIGHT LOWER LIMB Status: Acute Current Visit: Yes (3) Cellulitis of right foot SNOMED Code(s): 503441951 Code(s): L03.115 - CELLULITIS OF RIGHT LOWER LIMB Status: Acute Current Visit: Yes (4) HTN (hypertension) SNOMED Code(s): 85618900 Code(s): I10 - ESSENTIAL (PRIMARY) HYPERTENSION Status: Chronic Current Visit: Yes Qualifiers: Hypertension type: essential hypertension Qualified Code(s): I10 - Essential (primary) hypertension (5) COPD (chronic obstructive pulmonary disease) SNOMED Code(s): 73402441 Code(s): J44.9 - CHRONIC OBSTRUCTIVE PULMONARY DISEASE, UNSPECIFIED Status : Chronic Current Visit: Yes Qualifiers: COPD type: unspecified COPD Qualified Code(s): J44.9 - Chronic obstructive pulmonary disease, unspecified - Problem List Review Problem List Initiated/Reviewed/Updated: Yes - Plan Plan:: 61 yo male admitted with right foot cellulitis with ulcer to R foot 1. MRSA cellulitis with suspected abscess: Improving. I&D on Tuesday by Dr. Langston, Continue clindamycin. Awaiting bone cultures to evaluate for osteomyelitis and need for long-term IV antibiotics or close follow up with oral treatment. 2. HTN: Stable. Continue Cozaar and HCTZ. 3. COPD: Stable. Continue Symbicort. VTE prophylaxis: Heparin Dispo: 2-3 days pending bone culture results. Once these return will arrange for appropriate outpatient follow and discharge.
[2017-09-12] MEDS: Losartan 50 MG Tab PO SCH (08:00)
[2017-09-12] MEDS: Hydrochlorothiazide 25 MG Tab PO SCH (08:00)
[2017-09-12] MEDS: SYMBICORT INH SCH ×2 (10:27→21:40)
[2017-09-12] MEDS: MDI INH SCH ×2 (10:27→21:40)
[2017-09-12] MEDS: oxyCODONE 5 MG Tab PO PRN (14:21)
--- NOTE | 2017-09-12 19:57 | PCM.CONSN ---
- General Info Date of Service: 09/12/17 (patient seen at 12:50 pm with Fallon Tipton) Admission Dx/Problem (Free Text): Admission Diagnosis/Problem cellulitis of right lower extremity with right foot ulcer Subjective Update: Doing well this morning, pain controlled. No other complaints. No chest pain or SOB. - Patient Data Vitals - Most Recent: Last Vital Signs Temp 37.0 C 09/12/17 17:00 Pulse 83 09/12/17 17:00 Resp 20 09/12/17 17:00 BP 131/67 09/12/17 17:00 Pulse Ox 92 L 09/12/17 17:00 Weight - Most Recent: 122.47 kg I&O - Last 24 Hours: Intake & Output 09/12/17 09/12/17 09/12/17 06:59 14:59 22:59 Intake Total 1650 120 950 Output Total 1100 1855 Balance 550 120 -905 Esvin Results Last 24 Hours: Microbiology 09/10/17 10:40 Gram Stain - Final Foot, Right Wound Culture - Final Staphylococcus Aureus Skin Kathi Anaerobic Culture - Final NO ANAEROBES ISOLATED Med Orders - Current: Current Medications Acetaminophen (Tylenol) 650 mg PO Q4H PRN PRN Reason: Pain (Mild 1-3)/fever Last Admin: 09/09/17 14:49 Dose: 650 mg Heparin Sodium (Porcine) (Heparin Sodium) 5,000 units SUBCUT Q12HR [facility] Hydrochlorothiazide (Hydrochlorothiazide) 25 mg PO DAILY [facility] Last Admin: 09/12/17 08:00 Dose: 25 mg Clindamycin Phosphate 600 mg/ (Premix) 50 mls @ 100 mls/hr IV Q8H [facility] Last Admin: 09/12/17 14:17 Dose: 100 mls/hr Ibuprofen (Motrin) 400 mg PO Q6H PRN PRN Reason: Pain (mild 1-3) Losartan Potassium (Cozaar) 25 mg PO DAILY [facility] Last Admin: 09/12/17 08:00 Dose: 25 mg Morphine Sulfate (Morphine) 2 mg IVPUSH Q3H PRN PRN Reason: Pain (severe 7-10) Last Admin: 09/08/17 20:13 Dose: 2 mg Ondansetron HCl (Zofran) 4 mg IVPUSH Q4H PRN PRN Reason: Nausea Oxycodone HCl (Oxycodone) 5 mg PO Q4H PRN PRN Reason: Pain (moderate 4-6) Last Admin: 09/12/17 14:21 Dose: 5 mg Symbicort 160/4.5 (Mdi 2 Puffs) 1 each INH BID [facility] Last Admin: 09/12/17 10:27 Dose: 1 each Sodium Chloride (Saline Flush) 10 ml FLUSH ASDIRECTED PRN PRN Reason: Keep Vein Open Sodium Chloride (Saline Flush) 2.5 ml FLUSH ASDIRECTED PRN PRN Reason: Keep Vein Open Discontinued Medications Bupivacaine HCl (Marcaine 0.5%) Confirm Administered Dose 30 ml .ROUTE .STK-MED ONE Stop: 09/10/17 08:40 Diphenhydramine HCl (Benadryl) Confirm Administered Dose 50 mg .ROUTE .STK-MED ONE Stop: 09/10/17 09:42 Fentanyl (Sublimaze) Confirm Administered Dose 100 mcg .ROUTE .STK-MED ONE Stop: 09/10/17 09:03 Fentanyl (Sublimaze) Confirm Administered Dose 100 mcg .ROUTE .STK-MED ONE Stop: 09/10/17 09:44 Fentanyl (Sublimaze) 50 mcg IVPUSH Q5M PRN PRN Reason: Pain (severe 7-10) Stop: 09/10/17 13:00 Fentanyl (Sublimaze) Confirm Administered Dose 100 mcg .ROUTE .STK-MED ONE Stop: 09/10/17 10:36 Heparin Sodium (Porcine) (Heparin Sodium) 5,000 units SUBCUT Q8H [facility] Last Admin: 09/08/17 06:24 Dose: 5,000 units Sodium Chloride (Normal Saline) 1,000 mls @ 999 mls/hr IV STAT ONE Stop: 09/07/17 17:27 Last Admin: 09/07/17 16:48 Dose: 999 mls/hr Ceftriaxone Sodium 1,000 mg/ (Lidocaine HCl) 4 mls @ 4 mls/sec IM ONETIME ONE Stop: 09/07/17 17:32 Last Admin: 09/07/17 18:05 Dose: Not Given Sodium Chloride (Normal Saline) 1,000 mls @ 999 mls/hr IV STAT ONE Stop: 09/07/17 18:31 Last Admin: 09/07/17 18:05 Dose: Not Given Sodium Chloride (Normal Saline) 1,000 mls @ 125 mls/hr IV STAT ONE Stop: 09/08/17 01:54 Last Admin: 09/07/17 18:14 Dose: 125 mls/hr Ceftriaxone Sodium/Dextrose 1 (gm/ Premix) 50 mls @ 100 mls/hr IV ONETIME ONE Stop: 09/07/17 18:33 Last Admin: 09/07/17 18:15 Dose: 100 mls/hr Sodium Chloride (Normal Saline) 1,000 mls @ 125 mls/hr IV ASDIRECTED [facility] Last Admin: 09/08/17 17:38 Dose: 125 mls/hr Daptomycin 500 mg/ Sodium (Chloride) 20 mls @ 400 mls/hr IVPUSH DAILY@2200 [facility] Last Admin: 09/08/17 22:32 Dose: 400 mls/hr Sodium Chloride (Normal Saline) 1,000 mls @ 50 mls/hr IV ASDIRECTED [facility] Last Admin: 09/12/17 06:42 Dose: 50 mls/hr Lactated Ringer's (Ringers, Lactated) 1,000 mls @ 125 mls/hr IV ASDIRECTED [facility] Last Admin: 09/11/17 07:05 Dose: 125 mls/hr Midazolam HCl (Versed 1 Mg/Ml) Confirm Administered Dose 4 mg .ROUTE .STK-MED ONE Stop: 09/10/17 09:03 Ondansetron HCl (Zofran) Confirm Administered Dose 4 mg .ROUTE .STK-MED ONE Stop: 09/10/17 09:42 Potassium Chloride (Klor-Con M20) 40 meq PO ONETIME ONE Stop: 09/10/17 09:19 Last Admin: 09/10/17 12:33 Dose: 40 meq Potassium Chloride (Klor-Con M20) 40 meq PO ONETIME ONE Stop: 09/10/17 12:27 Last Admin: 09/10/17 13:19 Dose: Not Given Propofol (Diprivan 20 Ml) Confirm Administered Dose 200 mg .ROUTE .STK-MED ONE Stop: 09/10/17 09:03 Comments:: bone culture sent to pathology is not resulted - Exam Wound/Incisions: Drainage, Erythema Improving Neurological: No New Focal Deficit Psy/Mental Status: Alert, Normal Affect, Normal Mood Physical Findings Comments:: edema is stable from yesterday with no significant change. Pedal pulses on right foot non palpable due to edema. Serosanguinous drainage noted to strikethrough the Kerlix roll and inner Rodolfo bandage. Packing intact with minimal active drainage. Consult PN Assessment/Plan POD#: 2 Procedures: Procedures PT EVAL LOW COMPLEX 20 MIN (09/07/17) RMVL DEVITAL TIS 20 CM/< (09/07/17) UPR/L XTREMITY ART 2 LEVELS (09/07/17) US EXAM ABDO BACK WALL MOORE (11/29/16) X-RAY EXAM OF FOOT (08/16/17) s/p incision and drainage right foot ulcer x 2 days. (1) Cellulitis of right foot SNOMED Code(s): 937733264 Code(s): L03.115 - CELLULITIS OF RIGHT LOWER LIMB Current Visit: Yes Assessment:: continues to improve with reduced edema and erythema though little change from yesterday. (2) Cellulitis of right leg SNOMED Code(s): 171692219 Code(s): L03.115 - CELLULITIS OF RIGHT LOWER LIMB Current Visit: Yes Assessment:: Continues to improve with reduced edema and erythema. (3) Right foot ulcer SNOMED Code(s): 53103635 Code(s): L97.519 - NON-PRS CHRONIC ULCER OTH PRT RIGHT FOOT W UNSP SEVERITY Current Visit: Yes Qualifiers: Non-pressure ulcer stage: with necrosis of muscle Qualified Code(s): L97.513 - Non-pressure chronic ulcer of other part of right foot with necrosis of muscle Assessment:: The ulcer probes to bone. Osteomyelitis cannot be excluded. Bone sample pending with pathology from procedure two days ago. Problem List Initiated/Reviewed/Updated: Yes Plan: 1. Following with daily dressing changes status post 2 days after incision and drainage of right foot ulcer 2. Cultures: swab culture reveals Staph (non MRSA). 3. Bone specimen pending with pathology. If positive for osteomyelitis, this will guide plan but if negative patient must still be followed closely for signs of osteomyelitis. 4 Continue IV abx for Staph 5. If edema to right foot does not show greater reduction in next 24 hours I suggest another attempt at MRI to assess for other areas of right foot that may be compromised as well as imaging of bone. 6. Discussed patient with Fallon Tipton and Dr. Hoyos. 7. Will follow.
[2017-09-12] MEDS: Heparin Sodium 5,000 Units/ML Vial SUBCUT SCH (21:48)
[2017-09-13 05:45] LABS: CHLORIDE,CL 104 mmol/L (98-110); SODIUM,NA 140 mmol/L (136-146)
[2017-09-13] MEDS: Clindamycin Phosphate in D5W 600 MG in Premix Bag 50 BAG IV SCH ×6 (05:52→22:37)
--- NOTE | 2017-09-13 07:39 | PCM.PN ---
- General Info Date of Service: 09/13/17 Admission Dx/Problem (Free Text): Admission Diagnosis/Problem cellulitis of right lower extremity with right foot ulcer Subjective Update: Sitting on edge of bed this morning awaiting morning meal. Denies any pain. No chest pain or SOB. Doing well. R foot pain controlled. Functional Status: Reports: Pain Controlled, Tolerating Diet, Ambulating, Urinating - Review of Systems HEENT: Reports: No Symptoms Pulmonary: Reports: No Symptoms. Denies: Shortness of Breath Cardiovascular: Reports: Edema (R foot.). Denies: Chest Pain, Palpitations Gastrointestinal: Reports: No Symptoms. Denies: Abdominal Pain, Nausea, Vomiting Genitourinary: Reports: No Symptoms. Denies: Dysuria, Frequency, Burning Neurological: Reports: No Symptoms. Denies: Confusion Psychiatric: Reports: No Symptoms. Denies: Confusion - Patient Data Vitals - Most Recent: Last Vital Signs Temp 99 F 09/13/17 07:21 Pulse 68 09/13/17 07:21 Resp 16 09/13/17 07:21 BP 163/89 H 09/13/17 07:21 Pulse Ox 96 09/13/17 07:21 Weight - Most Recent: 122.47 kg I&O - Last 24 Hours: Intake & Output 09/12/17 09/13/17 09/13/17 22:59 06:59 14:59 Intake Total 950 500 Output Total 1855 650 Balance -905 -150 Lab Results Last 24 Hours: Laboratory Results - last 24 hr 09/13/17 09/13/17 Range/Units 04:51 04:51 WBC 6.55 (4.0-11.0) K/uL RBC 3.65 L (4.50-5.90) M/uL Hgb 10.7 L (13.0-17.0) g/dL Hct 32.4 L (38.0-50.0) % MCV 88.8 (80.0-98.0) fL MCH 29.3 (27.0-32.0) pg MCHC 33.0 (31.0-37.0) g/dL RDW Std Deviation 42.2 (28.0-62.0) fl RDW Coeff of Tony 13 (11.0-15.0) % Plt Count 261 (150-400) K/uL MPV 10.70 (7.40-12.00) fL Neut % (Auto) 65.0 (48.0-80.0) % Lymph % (Auto) 24.4 (16.0-40.0) % Craig % (Auto) 6.6 (0.0-15.0) % Eos % (Auto) 3.4 (0.0-7.0) % Baso % (Auto) 0.6 (0.0-1.5) % Neut # (Auto) 4.3 (1.4-5.7) K/uL Lymph # (Auto) 1.6 (0.6-2.4) K/uL Craig # (Auto) 0.4 (0.0-0.8) K/uL Eos # (Auto) 0.2 (0.0-0.7) K/uL Baso # (Auto) 0.0 (0.0-0.1) K/uL Nucleated RBC % 0.0 /100WBC Nucleated RBCs # 0 K/uL Sodium 140 (136-146) mmol/L Potassium 3.7 (3.5-5.1) mmol/L Chloride 104 (98-110) mmol/L Carbon Dioxide 28 (21-31) mmol/L BUN 8 (6.0-23.0) mg/dL Creatinine 0.7 (0.6-1.5) mg/dL Est Cr Clr Drug Dosing 118.72 mL/min Estimated GFR (MDRD) > 60.0 ml/min Glucose 110 (60-110) mg/dL Calcium 9.3 (8.8-10.8) mg/dL Esvin Results Last 24 Hours: Microbiology 09/10/17 10:40 Gram Stain - Final Foot, Right Wound Culture - Final Staphylococcus Aureus Skin Kathi Anaerobic Culture - Final NO ANAEROBES ISOLATED Med Orders - Current: Current Medications Acetaminophen (Tylenol) 650 mg PO Q4H PRN PRN Reason: Pain (Mild 1-3)/fever Last Admin: 09/09/17 14:49 Dose: 650 mg Heparin Sodium (Porcine) (Heparin Sodium) 5,000 units SUBCUT Q12HR [facility] Last Admin: 09/12/17 21:48 Dose: 5,000 units Hydrochlorothiazide (Hydrochlorothiazide) 25 mg PO DAILY [facility] Last Admin: 09/12/17 08:00 Dose: 25 mg Clindamycin Phosphate 600 mg/ (Premix) 50 mls @ 100 mls/hr IV Q8H [facility] Last Admin: 09/13/17 05:52 Dose: 100 mls/hr Ibuprofen (Motrin) 400 mg PO Q6H PRN PRN Reason: Pain (mild 1-3) Losartan Potassium (Cozaar) 25 mg PO DAILY [facility] Last Admin: 09/12/17 08:00 Dose: 25 mg Morphine Sulfate (Morphine) 2 mg IVPUSH Q3H PRN PRN Reason: Pain (severe 7-10) Last Admin: 09/08/17 20:13 Dose: 2 mg Ondansetron HCl (Zofran) 4 mg IVPUSH Q4H PRN PRN Reason: Nausea Oxycodone HCl (Oxycodone) 5 mg PO Q4H PRN PRN Reason: Pain (moderate 4-6) Last Admin: 09/12/17 14:21 Dose: 5 mg Symbicort 160/4.5 (Mdi 2 Puffs) 1 each INH BID [facility] Last Admin: 09/12/17 21:40 Dose: 1 each Sodium Chloride (Saline Flush) 10 ml FLUSH ASDIRECTED PRN PRN Reason: Keep Vein Open Sodium Chloride (Saline Flush) 2.5 ml FLUSH ASDIRECTED PRN PRN Reason: Keep Vein Open Discontinued Medications Bupivacaine HCl (Marcaine 0.5%) Confirm Administered Dose 30 ml .ROUTE .STK-MED ONE Stop: 09/10/17 08:40 Diphenhydramine HCl (Benadryl) Confirm Administered Dose 50 mg .ROUTE .STK-MED ONE Stop: 09/10/17 09:42 Fentanyl (Sublimaze) Confirm Administered Dose 100 mcg .ROUTE .STK-MED ONE Stop: 09/10/17 09:03 Fentanyl (Sublimaze) Confirm Administered Dose 100 mcg .ROUTE .STK-MED ONE Stop: 09/10/17 09:44 Fentanyl (Sublimaze) 50 mcg IVPUSH Q5M PRN PRN Reason: Pain (severe 7-10) Stop: 09/10/17 13:00 Fentanyl (Sublimaze) Confirm Administered Dose 100 mcg .ROUTE .STK-MED ONE Stop: 09/10/17 10:36 Heparin Sodium (Porcine) (Heparin Sodium) 5,000 units SUBCUT Q8H [facility] Last Admin: 09/08/17 06:24 Dose: 5,000 units Sodium Chloride (Normal Saline) 1,000 mls @ 999 mls/hr IV STAT ONE Stop: 09/07/17 17:27 Last Admin: 09/07/17 16:48 Dose: 999 mls/hr Ceftriaxone Sodium 1,000 mg/ (Lidocaine HCl) 4 mls @ 4 mls/sec IM ONETIME ONE Stop: 09/07/17 17:32 Last Admin: 09/07/17 18:05 Dose: Not Given Sodium Chloride (Normal Saline) 1,000 mls @ 999 mls/hr IV STAT ONE Stop: 09/07/17 18:31 Last Admin: 09/07/17 18:05 Dose: Not Given Sodium Chloride (Normal Saline) 1,000 mls @ 125 mls/hr IV STAT ONE Stop: 09/08/17 01:54 Last Admin: 09/07/17 18:14 Dose: 125 mls/hr Ceftriaxone Sodium/Dextrose 1 (gm/ Premix) 50 mls @ 100 mls/hr IV ONETIME ONE Stop: 09/07/17 18:33 Last Admin: 09/07/17 18:15 Dose: 100 mls/hr Sodium Chloride (Normal Saline) 1,000 mls @ 125 mls/hr IV ASDIRECTED [facility] Last Admin: 09/08/17 17:38 Dose: 125 mls/hr Daptomycin 500 mg/ Sodium (Chloride) 20 mls @ 400 mls/hr IVPUSH DAILY@2200 [facility] Last Admin: 09/08/17 22:32 Dose: 400 mls/hr Sodium Chloride (Normal Saline) 1,000 mls @ 50 mls/hr IV ASDIRECTED [facility] Last Admin: 09/12/17 06:42 Dose: 50 mls/hr Lactated Ringer's (Ringers, Lactated) 1,000 mls @ 125 mls/hr IV ASDIRECTED [facility] Last Admin: 09/11/17 07:05 Dose: 125 mls/hr Midazolam HCl (Versed 1 Mg/Ml) Confirm Administered Dose 4 mg .ROUTE .STK-MED ONE Stop: 09/10/17 09:03 Ondansetron HCl (Zofran) Confirm Administered Dose 4 mg .ROUTE .STK-MED ONE Stop: 09/10/17 09:42 Potassium Chloride (Klor-Con M20) 40 meq PO ONETIME ONE Stop: 09/10/17 09:19 Last Admin: 09/10/17 12:33 Dose: 40 meq Potassium Chloride (Klor-Con M20) 40 meq PO ONETIME ONE Stop: 09/10/17 12:27 Last Admin: 09/10/17 13:19 Dose: Not Given Propofol (Diprivan 20 Ml) Confirm Administered Dose 200 mg .ROUTE .STK-MED ONE Stop: 09/10/17 09:03 - Exam General: Alert, Oriented, Cooperative, No Acute Distress Lungs: Clear to Auscultation, Normal Respiratory Effort Cardiovascular: Regular Rate, Regular Rhythm GI/Abdominal Exam: Normal Bowel Sounds, Soft, Non-Tender, No Organomegaly, No Distention, No Abnormal Bruit, No Mass, Pelvis Stable Extremities: Normal Range of Motion, Normal Capillary Refill, Pedal Edema (+1-2 pitting edema to R foot. ) Wound/Incisions: Dressing Dry and Intact, Erythema Improving (continues to improve to R lower leg. Some continues with little improvement to dorsum of foot just below 2-4th toes.) Neurological: No New Focal Deficit Psy/Mental Status: Alert, Normal Affect, Normal Mood - Problem List & Annotations (1) Right foot ulcer SNOMED Code(s): 00702545 Code(s): L97.519 - NON-PRS CHRONIC ULCER OTH PRT RIGHT FOOT W UNSP SEVERITY Status: Acute Current Visit: Yes Qualifiers: Non-pressure ulcer stage: with necrosis of muscle Qualified Code(s): L97.513 - Non-pressure chronic ulcer of other part of right foot with necrosis of muscle (2) Cellulitis of right leg SNOMED Code(s): 519039626 Code(s): L03.115 - CELLULITIS OF RIGHT LOWER LIMB Status: Acute Current Visit: Yes (3) Cellulitis of right foot SNOMED Code(s): 576594107 Code(s): L03.115 - CELLULITIS OF RIGHT LOWER LIMB Status: Acute Current Visit: Yes (4) HTN (hypertension) SNOMED Code(s): 67729548 Code(s): I10 - ESSENTIAL (PRIMARY) HYPERTENSION Status: Chronic Current Visit: Yes Qualifiers: Hypertension type: essential hypertension Qualified Code(s): I10 - Essential (primary) hypertension (5) COPD (chronic obstructive pulmonary disease) SNOMED Code(s): 84318403 Code(s): J44.9 - CHRONIC OBSTRUCTIVE PULMONARY DISEASE, UNSPECIFIED Status : Chronic Current Visit: Yes Qualifiers: COPD type: unspecified COPD Qualified Code(s): J44.9 - Chronic obstructive pulmonary disease, unspecified - Problem List Review Problem List Initiated/Reviewed/Updated: Yes - My Orders Last 24 Hours: My Active Orders 09/12/17 21:00 Heparin Sodium 5,000 units SUBCUT Q12HR 09/14/17 05:11 BMP [BASIC METABOLIC PANEL,BMP] [CHEM] AM CBC WITH AUTO DIFF [HEME] AM - Plan Plan:: 61 yo male admitted with right foot cellulitis with ulcer to R foot 1. MRSA cellulitis with suspected abscess: Improving. Continue clindamycin. Awaiting bone pathology, spoke with Dr. Wellington Hoyos yesterday in pathology, thought report would be back 2/6 evening. Swelling to R foot continues, will attempt MRI , which Dr Langston recommended if swelling persisted to further evaluate foot and possibility of more infection beyond foot ulcer site. 2. HTN: Stable. Continue Cozaar and HCTZ. 3. COPD: Stable. Continue Symbicort. VTE prophylaxis: Heparin Dispo: 2-3 days pending bone culture results. Once these return will arrange for appropriate outpatient follow and discharge.
[2017-09-13] MEDS: Losartan 50 MG Tab PO SCH (08:33)
[2017-09-13] MEDS: Hydrochlorothiazide 25 MG Tab PO SCH (08:33)
[2017-09-13] MEDS: Heparin Sodium 5,000 Units/ML Vial SUBCUT SCH ×2 (08:34→20:45)
[2017-09-13] MEDS: MDI INH SCH ×2 (08:40→20:46)
[2017-09-13] MEDS: SYMBICORT INH SCH ×2 (08:40→20:46)
[2017-09-13] MEDS: oxyCODONE 5 MG Tab PO PRN ×2 (08:45→13:46)
[2017-09-13] MEDS ORDERED: LORazepam 2 MG/ML MDV IVPUSH ONE (08:52)
[2017-09-13] MEDS ORDERED: Gadobenate Dimeglumine 529 MG/ML 20 ML SDV IVPUSH STA (11:22)
--- NOTE | 2017-09-13 14:36 | MR ---
EXAMINATION: MRI of the foot with and without contrast HISTORY: Right foot ulcer COMPARISON: Radiographs dated 08/16/2017 TECHNIQUE: Multiplanar and multisequence imaging obtained of the right foot before and following the administration of 20 mL MultiHance. FINDINGS: There is extraneous ulceration along the lateral aspect of the foot in the region of the mi d foot. There is enhancement of the adjacent fifth metatarsal. Also mild enhancement is noted in the periarticular aspect of the fourth metatarsal and anterior cuboid. Otherwise notable degenerative mingo nges are noted within the midfoot and first MTP joints. Moderate articular cartilage thinning noted w ithin the tibiotalar joint with subchondral cystic change. Subchondral cystic change also noted withi n the subtalar joint, anterior process of the calcaneus. Generalized soft tissue swelling and enhance ment is noted throughout the right foot. IMPRESSION: 1. Subcutaneous ulcer along the lateral aspect of the foot underlying enhancement of the fifth and fo urth metatarsal heads and the anterior cuboid suggestive of osteomyelitis and possible septic arthrit is. 2. Extensive soft tissue swelling and enhancement suggestive of cellulitis. 3. Moderate degenerative changes noted within the right foot most prominent within the midfoot.
--- NOTE | 2017-09-13 15:52 | PCM.SN ---
- Free Text/Narrative Note: pathology report back, bone biopsy reports osteomyelitis. MRI results also returned with reveal subcutaneous ulcer along lateral aspect of the foot underlying enhancement of the fifth and fourth metatarsal heads and anterior cuboid suggestive of osteomyelitis and possible septic arthritis. Extensive soft tissue swelling and enancement suggestive of cellulitis and moderate degenerative changes noted within the right foot most prominent within the midfoot. Dr Langston aware. PICC line arrangements made and will be placed in the morning. Discussing antibiotics coverage with Dr Langston and Dea PharmD in contact [facility]. it would be best for daily dosing of Daptomycin to limit his travel to and from hospital with Clindamycin being three times daily. He will need therapy for at least 6 weeks and will have close follow up with Dr Langston for foot ulcer. Dr Hoyos aware as well.
--- NOTE | 2017-09-13 17:19 | PCM.CONSN ---
- General Info Date of Service: 09/13/17 Admission Dx/Problem (Free Text): Admission Diagnosis/Problem cellulitis of right lower extremity with right foot ulcer Subjective Update: In MRI when I went to Radiology. - Patient Data Vitals - Most Recent: Last Vital Signs Temp 36.9 C 09/13/17 16:34 Pulse 66 09/13/17 16:34 Resp 20 09/13/17 16:34 BP 144/79 H 09/13/17 16:34 Pulse Ox 97 09/13/17 16:34 Weight - Most Recent: 122.47 kg I&O - Last 24 Hours: Intake & Output 09/13/17 09/13/17 09/13/17 06:59 14:59 22:59 Intake Total 500 800 Output Total 650 1850 Balance -150 -1050 Lab Results Last 24 Hours: Laboratory Results - last 24 hr 09/13/17 09/13/17 Range/Units 04:51 04:51 WBC 6.55 (4.0-11.0) K/uL RBC 3.65 L (4.50-5.90) M/uL Hgb 10.7 L (13.0-17.0) g/dL Hct 32.4 L (38.0-50.0) % MCV 88.8 (80.0-98.0) fL MCH 29.3 (27.0-32.0) pg MCHC 33.0 (31.0-37.0) g/dL RDW Std Deviation 42.2 (28.0-62.0) fl RDW Coeff of Tony 13 (11.0-15.0) % Plt Count 261 (150-400) K/uL MPV 10.70 (7.40-12.00) fL Neut % (Auto) 65.0 (48.0-80.0) % Lymph % (Auto) 24.4 (16.0-40.0) % Millard % (Auto) 6.6 (0.0-15.0) % Eos % (Auto) 3.4 (0.0-7.0) % Baso % (Auto) 0.6 (0.0-1.5) % Neut # (Auto) 4.3 (1.4-5.7) K/uL Lymph # (Auto) 1.6 (0.6-2.4) K/uL Millard # (Auto) 0.4 (0.0-0.8) K/uL Eos # (Auto) 0.2 (0.0-0.7) K/uL Baso # (Auto) 0.0 (0.0-0.1) K/uL Nucleated RBC % 0.0 /100WBC Nucleated RBCs # 0 K/uL Sodium 140 (136-146) mmol/L Potassium 3.7 (3.5-5.1) mmol/L Chloride 104 (98-110) mmol/L Carbon Dioxide 28 (21-31) mmol/L BUN 8 (6.0-23.0) mg/dL Creatinine 0.7 (0.6-1.5) mg/dL Est Cr Clr Drug Dosing 118.72 mL/min Estimated GFR (MDRD) > 60.0 ml/min Glucose 110 (60-110) mg/dL Calcium 9.3 (8.8-10.8) mg/dL Esvin Results Last 24 Hours: Microbiology 09/10/17 10:40 Gram Stain - Final Foot, Right Wound Culture - Final Staphylococcus Aureus Skin Kathi Anaerobic Culture - Final NO ANAEROBES ISOLATED Med Orders - Current: Current Medications Acetaminophen (Tylenol) 650 mg PO Q4H PRN PRN Reason: Pain (Mild 1-3)/fever Last Admin: 09/09/17 14:49 Dose: 650 mg Heparin Sodium (Porcine) (Heparin Sodium) 5,000 units SUBCUT Q12HR [facility] Last Admin: 09/13/17 08:34 Dose: 5,000 units Hydrochlorothiazide (Hydrochlorothiazide) 25 mg PO DAILY [facility] Last Admin: 09/13/17 08:33 Dose: 25 mg Clindamycin Phosphate 600 mg/ (Premix) 50 mls @ 100 mls/hr IV Q8H [facility] Last Admin: 09/13/17 13:46 Dose: 100 mls/hr Ibuprofen (Motrin) 400 mg PO Q6H PRN PRN Reason: Pain (mild 1-3) Losartan Potassium (Cozaar) 25 mg PO DAILY [facility] Last Admin: 09/13/17 08:33 Dose: 25 mg Morphine Sulfate (Morphine) 2 mg IVPUSH Q3H PRN PRN Reason: Pain (severe 7-10) Last Admin: 09/08/17 20:13 Dose: 2 mg Ondansetron HCl (Zofran) 4 mg IVPUSH Q4H PRN PRN Reason: Nausea Oxycodone HCl (Oxycodone) 5 mg PO Q4H PRN PRN Reason: Pain (moderate 4-6) Last Admin: 09/13/17 13:46 Dose: 5 mg Symbicort 160/4.5 (Mdi 2 Puffs) 1 each INH BID [facility] Last Admin: 09/13/17 08:40 Dose: Not Given Sodium Chloride (Saline Flush) 10 ml FLUSH ASDIRECTED PRN PRN Reason: Keep Vein Open Sodium Chloride (Saline Flush) 2.5 ml FLUSH ASDIRECTED PRN PRN Reason: Keep Vein Open Discontinued Medications Bupivacaine HCl (Marcaine 0.5%) Confirm Administered Dose 30 ml .ROUTE .STK-MED ONE Stop: 09/10/17 08:40 Diphenhydramine HCl (Benadryl) Confirm Administered Dose 50 mg .ROUTE .STK-MED ONE Stop: 09/10/17 09:42 Fentanyl (Sublimaze) Confirm Administered Dose 100 mcg .ROUTE .STK-MED ONE Stop: 09/10/17 09:03 Fentanyl (Sublimaze) Confirm Administered Dose 100 mcg .ROUTE .STK-MED ONE Stop: 09/10/17 09:44 Fentanyl (Sublimaze) 50 mcg IVPUSH Q5M PRN PRN Reason: Pain (severe 7-10) Stop: 09/10/17 13:00 Fentanyl (Sublimaze) Confirm Administered Dose 100 mcg .ROUTE .STK-MED ONE Stop: 09/10/17 10:36 Gadobenate Dimeglumine (Multihance) 20 ml IVPUSH ONETIME [facility] Stop: 09/13/17 11:23 Last Admin: 09/13/17 11:26 Dose: 20 ml Heparin Sodium (Porcine) (Heparin Sodium) 5,000 units SUBCUT Q8H [facility] Last Admin: 09/08/17 06:24 Dose: 5,000 units Sodium Chloride (Normal Saline) 1,000 mls @ 999 mls/hr IV STAT ONE Stop: 09/07/17 17:27 Last Admin: 09/07/17 16:48 Dose: 999 mls/hr Ceftriaxone Sodium 1,000 mg/ (Lidocaine HCl) 4 mls @ 4 mls/sec IM ONETIME ONE Stop: 09/07/17 17:32 Last Admin: 09/07/17 18:05 Dose: Not Given Sodium Chloride (Normal Saline) 1,000 mls @ 999 mls/hr IV STAT ONE Stop: 09/07/17 18:31 Last Admin: 09/07/17 18:05 Dose: Not Given Sodium Chloride (Normal Saline) 1,000 mls @ 125 mls/hr IV STAT ONE Stop: 09/08/17 01:54 Last Admin: 09/07/17 18:14 Dose: 125 mls/hr Ceftriaxone Sodium/Dextrose 1 (gm/ Premix) 50 mls @ 100 mls/hr IV ONETIME ONE Stop: 09/07/17 18:33 Last Admin: 09/07/17 18:15 Dose: 100 mls/hr Sodium Chloride (Normal Saline) 1,000 mls @ 125 mls/hr IV ASDIRECTED [facility] Last Admin: 09/08/17 17:38 Dose: 125 mls/hr Daptomycin 500 mg/ Sodium (Chloride) 20 mls @ 400 mls/hr IVPUSH DAILY@2200 [facility] Last Admin: 09/08/17 22:32 Dose: 400 mls/hr Sodium Chloride (Normal Saline) 1,000 mls @ 50 mls/hr IV ASDIRECTED [facility] Last Admin: 09/12/17 06:42 Dose: 50 mls/hr Lactated Ringer's (Ringers, Lactated) 1,000 mls @ 125 mls/hr IV ASDIRECTED [facility] Last Admin: 09/11/17 07:05 Dose: 125 mls/hr Lorazepam (Ativan) 1 mg IVPUSH ONCALL ONE Stop: 09/13/17 08:53 Last Admin: 09/13/17 10:55 Dose: 1 mg Midazolam HCl (Versed 1 Mg/Ml) Confirm Administered Dose 4 mg .ROUTE .STK-MED ONE Stop: 09/10/17 09:03 Ondansetron HCl (Zofran) Confirm Administered Dose 4 mg .ROUTE .STK-MED ONE Stop: 09/10/17 09:42 Potassium Chloride (Klor-Con M20) 40 meq PO ONETIME ONE Stop: 09/10/17 09:19 Last Admin: 09/10/17 12:33 Dose: 40 meq Potassium Chloride (Klor-Con M20) 40 meq PO ONETIME ONE Stop: 09/10/17 12:27 Last Admin: 09/10/17 13:19 Dose: Not Given Propofol (Diprivan 20 Ml) Confirm Administered Dose 200 mg .ROUTE .STK-MED ONE Stop: 09/10/17 09:03 - Exam Physical Findings Comments:: in MRI when I went to Radiology - no exam today by me Consult PN Assessment/Plan POD#: 3 Procedures: Procedures PT EVAL LOW COMPLEX 20 MIN (09/07/17) RMVL DEVITAL TIS 20 CM/< (09/07/17) UPR/L XTREMITY ART 2 LEVELS (09/07/17) US EXAM ABDO BACK WALL MOORE (11/29/16) X-RAY EXAM OF FOOT (08/16/17) (1) Cellulitis of right foot SNOMED Code(s): 127484089 Code(s): L03.115 - CELLULITIS OF RIGHT LOWER LIMB Current Visit: Yes Assessment:: continues to improve with reduced edema and erythema though little change from yesterday. (2) Cellulitis of right leg SNOMED Code(s): 991475252 Code(s): L03.115 - CELLULITIS OF RIGHT LOWER LIMB Current Visit: Yes Assessment:: Continues to improve with reduced edema and erythema. (3) Right foot ulcer SNOMED Code(s): 60991616 Code(s): L97.519 - NON-PRS CHRONIC ULCER OTH PRT RIGHT FOOT W UNSP SEVERITY Current Visit: Yes Qualifiers: Non-pressure ulcer stage: with necrosis of muscle Qualified Code(s): L97.513 - Non-pressure chronic ulcer of other part of right foot with necrosis of muscle Assessment:: The ulcer probes to bone. Osteomyelitis cannot be excluded. Bone sample pending with pathology from procedure two days ago. Problem List Initiated/Reviewed/Updated: Yes Plan: 1. Following with daily dressing changes status post 3 days after incision and drainage of right foot ulcer 2. Bone specimen confirms osteomyelitis. I discussed IV antibiotics with Fallon Tipton. 3. MRI suggestive of osteomyelitis and septic arthritis in metatarsal heads 4 and 5 and anterior cuboid. 4 Continue IV abx for Staph. 5. From discussion with Fallon Tipton, I understand edema has not improved significantly. Patient should remain hospitalized at least until PICC line is in place and plan for administration of IV abx is in place. 6. Discussed patient with Fallon Tipton and Dr. Hoyos. 7. Will follow.
[2017-09-14] MEDS: oxyCODONE 5 MG Tab PO PRN ×2 (02:04→11:47)
[2017-09-14 06:05] LABS: CHLORIDE,CL 104 mmol/L (98-110); SODIUM,NA 139 mmol/L (136-146)
[2017-09-14] MEDS: Clindamycin Phosphate in D5W 600 MG in Premix Bag 50 BAG IV SCH ×2 (06:06)
[2017-09-14] MEDS: SYMBICORT INH SCH (08:33)
[2017-09-14] MEDS: MDI INH SCH (08:33)
[2017-09-14] MEDS: Losartan 50 MG Tab PO SCH (10:38)
[2017-09-14] MEDS: Hydrochlorothiazide 25 MG Tab PO SCH (10:38)
[2017-09-14] MEDS: Heparin Sodium 5,000 Units/ML Vial SUBCUT SCH (10:39)
[2017-09-14] MEDS ORDERED: DAPTOmycin 500 MG Vial IVPUSH SCH (13:15)
[2017-09-14] MEDS ORDERED: Lidocaine 1% 20 ML MDV INJECT STA (13:27)
--- NOTE | 2017-09-14 13:42 | PCM.CONSN ---
- General Info Date of Service: 09/14/17 Admission Dx/Problem (Free Text): Admission Diagnosis/Problem cellulitis of right lower extremity with right foot ulcer Subjective Update: patient feeling well, just had PICC line placement - Patient Data Vitals - Most Recent: Last Vital Signs Temp 37.0 C 09/14/17 08:00 Pulse 77 09/14/17 08:00 Resp 16 09/14/17 08:00 BP 134/87 09/14/17 10:38 Pulse Ox 93 L 09/14/17 08:00 Weight - Most Recent: 122.47 kg I&O - Last 24 Hours: Intake & Output 09/13/17 09/14/17 09/14/17 22:59 06:59 14:59 Intake Total 800 1500 Output Total 1850 1125 Balance -1050 375 Lab Results Last 24 Hours: Laboratory Results - last 24 hr 09/14/17 09/14/17 Range/Units 05:03 05:03 WBC 6.34 (4.0-11.0) K/uL RBC 3.62 L (4.50-5.90) M/uL Hgb 10.5 L (13.0-17.0) g/dL Hct 31.9 L (38.0-50.0) % MCV 88.1 (80.0-98.0) fL MCH 29.0 (27.0-32.0) pg MCHC 32.9 (31.0-37.0) g/dL RDW Std Deviation 41.6 (28.0-62.0) fl RDW Coeff of Tony 13 (11.0-15.0) % Plt Count 263 (150-400) K/uL MPV 10.40 (7.40-12.00) fL Neut % (Auto) 66.4 (48.0-80.0) % Lymph % (Auto) 22.4 (16.0-40.0) % [place] % (Auto) 8.7 (0.0-15.0) % Eos % (Auto) 2.2 (0.0-7.0) % Baso % (Auto) 0.3 (0.0-1.5) % Neut # (Auto) 4.2 (1.4-5.7) K/uL Lymph # (Auto) 1.4 (0.6-2.4) K/uL [place] # (Auto) 0.6 (0.0-0.8) K/uL Eos # (Auto) 0.1 (0.0-0.7) K/uL Baso # (Auto) 0.0 (0.0-0.1) K/uL Nucleated RBC % 0.0 /100WBC Nucleated RBCs # 0 K/uL Sodium 139 (136-146) mmol/L Potassium 4.1 (3.5-5.1) mmol/L Chloride 104 (98-110) mmol/L Carbon Dioxide 28 (21-31) mmol/L BUN 8 (6.0-23.0) mg/dL Creatinine 0.7 (0.6-1.5) mg/dL Est Cr Clr Drug Dosing 118.72 mL/min Estimated GFR (MDRD) > 60.0 ml/min Glucose 95 (60-110) mg/dL Calcium 9.6 (8.8-10.8) mg/dL Med Orders - Current: Current Medications Acetaminophen (Tylenol) 650 mg PO Q4H PRN PRN Reason: Pain (Mild 1-3)/fever Last Admin: 09/09/17 14:49 Dose: 650 mg Heparin Sodium (Porcine) (Heparin Sodium) 5,000 units SUBCUT Q12HR [facility] Last Admin: 09/14/17 10:39 Dose: 5,000 units Hydrochlorothiazide (Hydrochlorothiazide) 25 mg PO DAILY [facility] Last Admin: 09/14/17 10:38 Dose: 25 mg Daptomycin 1,000 mg/ Sodium (Chloride) 20 mls @ 600 mls/hr IV Q24H [facility] Ibuprofen (Motrin) 400 mg PO Q6H PRN PRN Reason: Pain (mild 1-3) Losartan Potassium (Cozaar) 25 mg PO DAILY [facility] Last Admin: 09/14/17 10:38 Dose: 25 mg Morphine Sulfate (Morphine) 2 mg IVPUSH Q3H PRN PRN Reason: Pain (severe 7-10) Last Admin: 09/08/17 20:13 Dose: 2 mg Ondansetron HCl (Zofran) 4 mg IVPUSH Q4H PRN PRN Reason: Nausea Oxycodone HCl (Oxycodone) 5 mg PO Q4H PRN PRN Reason: Pain (moderate 4-6) Last Admin: 09/14/17 11:47 Dose: 5 mg Symbicort 160/4.5 (Mdi 2 Puffs) 1 each INH BID [facility] Last Admin: 09/14/17 08:33 Dose: 1 each Sodium Chloride (Saline Flush) 10 ml FLUSH ASDIRECTED PRN PRN Reason: Keep Vein Open Sodium Chloride (Saline Flush) 2.5 ml FLUSH ASDIRECTED PRN PRN Reason: Keep Vein Open Discontinued Medications Bupivacaine HCl (Marcaine 0.5%) Confirm Administered Dose 30 ml .ROUTE .STK-MED ONE Stop: 09/10/17 08:40 Diphenhydramine HCl (Benadryl) Confirm Administered Dose 50 mg .ROUTE .STK-MED ONE Stop: 09/10/17 09:42 Fentanyl (Sublimaze) Confirm Administered Dose 100 mcg .ROUTE .STK-MED ONE Stop: 09/10/17 09:03 Fentanyl (Sublimaze) Confirm Administered Dose 100 mcg .ROUTE .STK-MED ONE Stop: 09/10/17 09:44 Fentanyl (Sublimaze) 50 mcg IVPUSH Q5M PRN PRN Reason: Pain (severe 7-10) Stop: 09/10/17 13:00 Fentanyl (Sublimaze) Confirm Administered Dose 100 mcg .ROUTE .STK-MED ONE Stop: 09/10/17 10:36 Gadobenate Dimeglumine (Multihance) 20 ml IVPUSH ONETIME STA Stop: 09/13/17 11:23 Last Admin: 09/13/17 11:26 Dose: 20 ml Heparin Sodium (Porcine) (Heparin Sodium) 5,000 units SUBCUT Q8H [facility] Last Admin: 09/08/17 06:24 Dose: 5,000 units Sodium Chloride (Normal Saline) 1,000 mls @ 999 mls/hr IV STAT ONE Stop: 09/07/17 17:27 Last Admin: 09/07/17 16:48 Dose: 999 mls/hr Ceftriaxone Sodium 1,000 mg/ (Lidocaine HCl) 4 mls @ 4 mls/sec IM ONETIME ONE Stop: 09/07/17 17:32 Last Admin: 09/07/17 18:05 Dose: Not Given Sodium Chloride (Normal Saline) 1,000 mls @ 999 mls/hr IV STAT ONE Stop: 09/07/17 18:31 Last Admin: 09/07/17 18:05 Dose: Not Given Sodium Chloride (Normal Saline) 1,000 mls @ 125 mls/hr IV STAT ONE Stop: 09/08/17 01:54 Last Admin: 09/07/17 18:14 Dose: 125 mls/hr Ceftriaxone Sodium/Dextrose 1 (gm/ Premix) 50 mls @ 100 mls/hr IV ONETIME ONE Stop: 09/07/17 18:33 Last Admin: 09/07/17 18:15 Dose: 100 mls/hr Sodium Chloride (Normal Saline) 1,000 mls @ 125 mls/hr IV ASDIRECTED [facility] Last Admin: 09/08/17 17:38 Dose: 125 mls/hr Daptomycin 500 mg/ Sodium (Chloride) 20 mls @ 400 mls/hr IVPUSH DAILY@2200 [facility] Last Admin: 09/08/17 22:32 Dose: 400 mls/hr Clindamycin Phosphate 600 mg/ (Premix) 50 mls @ 100 mls/hr IV Q8H [facility] Last Admin: 09/14/17 06:06 Dose: 100 mls/hr Sodium Chloride (Normal Saline) 1,000 mls @ 50 mls/hr IV ASDIRECTED [facility] Last Admin: 09/12/17 06:42 Dose: 50 mls/hr Lactated Ringer's (Ringers, Lactated) 1,000 mls @ 125 mls/hr IV ASDIRECTED [facility] Last Admin: 09/11/17 07:05 Dose: 125 mls/hr Lidocaine HCl (Xylocaine 1%) 5 ml INJECT ONETIME STA Stop: 09/14/17 13:28 Lorazepam (Ativan) 1 mg IVPUSH ONCALL ONE Stop: 09/13/17 08:53 Last Admin: 09/13/17 10:55 Dose: 1 mg Midazolam HCl (Versed 1 Mg/Ml) Confirm Administered Dose 4 mg .ROUTE .STK-MED ONE Stop: 09/10/17 09:03 Ondansetron HCl (Zofran) Confirm Administered Dose 4 mg .ROUTE .STK-MED ONE Stop: 09/10/17 09:42 Potassium Chloride (Klor-Con M20) 40 meq PO ONETIME ONE Stop: 09/10/17 09:19 Last Admin: 09/10/17 12:33 Dose: 40 meq Potassium Chloride (Klor-Con M20) 40 meq PO ONETIME ONE Stop: 09/10/17 12:27 Last Admin: 09/10/17 13:19 Dose: Not Given Propofol (Diprivan 20 Ml) Confirm Administered Dose 200 mg .ROUTE .STK-MED ONE Stop: 09/10/17 09:03 - Exam Peripheral Pulses: 0: Posterior Tibial (R) (non palpable due to edema), 1+: Dorsalis Pedis (R) Skin: Warm Wound/Incisions: Other (minimal serous drainage right foot ulcer, sutures intact , packing in place) Physical Findings Comments:: overall, edema is slightly reduced, and erythema moderately improved to right foot Consult PN Assessment/Plan POD#: 4 Procedures: Procedures PT EVAL LOW COMPLEX 20 MIN (09/07/17) RMVL DEVITAL TIS 20 CM/< (09/07/17) UPR/L XTREMITY ART 2 LEVELS (09/07/17) US EXAM ABDO BACK WALL MOORE (11/29/16) X-RAY EXAM OF FOOT (08/16/17) s/p I&D 09/10/17 of right foot ulcer (1) Cellulitis of right foot SNOMED Code(s): 270903191 Code(s): L03.115 - CELLULITIS OF RIGHT LOWER LIMB Current Visit: Yes Assessment:: continues to improve with reduced edema and erythema which is moderately improved from yesterday. (2) Cellulitis of right leg SNOMED Code(s): 657766676 Code(s): L03.115 - CELLULITIS OF RIGHT LOWER LIMB Current Visit: Yes Assessment:: Continues to improve with reduced edema and erythema. 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 Osteomyelitis confirmed by bone sample and suggested as well by MRI. Problem List Initiated/Reviewed/Updated: Yes Plan: 1. Dressing change done - packing removed, ulcer flushed, packing replaced followed by dry sterile dressing. 2. Bone specimen confirms osteomyelitis. Plan is for IV Cubicin in [place] with wound care, both daily 3. MRI suggestive of osteomyelitis and septic arthritis in metatarsal heads 4 and 5 and anterior cuboid. 4. Patient to followup on 09/22/17 in my office. 5. PICC line in place as of today. 6. Patient is OK to discharge from Podiatry standpoint. Patient has my cell phone and contact information for office and is encouraged to contact me with any concerns. He and his are to drop by to citrus picker a shower bag in my office after discharge today, even if after hours. 7. Will follow on outpatient basis. Thank you for allowing me to participate in the care of this patient.
--- NOTE | 2017-09-14 13:43 | PCM.DCSUM1 ---
Discharge Summary - Hospital Course Brief History: This 61 year ldo male who has admitted in [place], [place] on 05/25 for cellulitis with 1.5 cm penetrating right foot ulcer. CT scan at the time did not show abscess or osteomyolitis. He was treated with IV antibiotics. He was given vancomycin which he reports gave him a headache. After discharge they have been following up at the [place] clinic. He was prescribed Keflex but developed flu like symptoms which he thought was due to the medicine so he prescribed Doxycycline. He has been reporting subjective fevers and chills. He does reports blood and purulent drainage from his ulcer. He has no history of diabetes. He reports stabbing pain from the ulcer. in the ED no leukocytosis noted, hyponatremia noted, 129. BC and wound culture obtained. CXR negative. Patient admitted with R lower leg cellulitis with R foot ulcer. - Discharge Data Discharge Date: 09/14/17 Discharge Disposition: Home, Self-Care 01 Condition: Good - Discharge Diagnosis/Problem(s) (1) Right foot ulcer SNOMED Code(s): 07958416 ICD Code: L97.519 - NON-PRS CHRONIC ULCER OTH PRT RIGHT FOOT W UNSP SEVERITY Status: Acute Current Visit: Yes Qualifiers: Non-pressure ulcer stage: with necrosis of muscle Qualified Code(s): L97.513 - Non-pressure chronic ulcer of other part of right foot with necrosis of muscle (2) Cellulitis of right leg SNOMED Code(s): 783396241 ICD Code: L03.115 - CELLULITIS OF RIGHT LOWER LIMB Status: Acute Current Visit: Yes (3) Cellulitis of right foot SNOMED Code(s): 575812430 ICD Code: L03.115 - CELLULITIS OF RIGHT LOWER LIMB Status: Acute Current Visit: Yes (4) HTN (hypertension) SNOMED Code(s): 06816054 ICD Code: I10 - ESSENTIAL (PRIMARY) HYPERTENSION Status: Chronic Current Visit: Yes Qualifiers: Hypertension type: essential hypertension Qualified Code(s): I10 - Essential (primary) hypertension (5) COPD (chronic obstructive pulmonary disease) SNOMED Code(s): 15905291 ICD Code: J44.9 - CHRONIC OBSTRUCTIVE PULMONARY DISEASE, UNSPECIFIED Status : Chronic Current Visit: Yes Qualifiers: COPD type: unspecified COPD Qualified Code(s): J44.9 - Chronic obstructive pulmonary disease, unspecified - Patient Summary/Data Operative Procedure(s) Performed: incision and drainage ulcer right foot Consults: Consultations 09/07/17 20:08 PT Evaluation and Treatment [CONS] Routine 09/09/17 07:44 Consult to Physician [CONS] Routine - Patient Instructions Diet: Heart Healthy Diet Activity: As Tolerated, Elevate Extremity (keep R leg elevated when resting. ) Driving: Do Not Drive Showering/Bathing: May Shower Wound/Incision Care: Keep Operative Site/Wound Site Clean and Dry, Change Dressing Daily (to be changed daily at [facility]) Notify Provider of: Fever, Increased Pain, Swelling and Redness, Drainage, Nausea and/or Vomiting - Discharge Plan Prescriptions/Med Rec: DAPTOmycin [Cubicin] 1,000 mg IV DAILY #42 vial oxyCODONE 5 mg PO Q4H PRN #30 tablet PRN Reason: Pain (Moderate 4-6) Home Medications: Home Meds Budesonide/Formoterol [Symbicort 160-4.5 MCG] 2 puff INH BID 09/07/17 [History] Hydrochlorothiazide 25 mg PO DAILY 09/07/17 [History] Losartan [Cozaar] 25 mg PO DAILY 09/07/17 [History] DAPTOmycin [Cubicin] 1,000 mg IV DAILY #42 vial 09/13/17 [Rx] oxyCODONE 5 mg PO Q4H PRN #30 tablet 09/14/17 [Rx] Patient Handouts: Cellulitis, Adult, [id number], Incision and Drainage, Care After, MRSA Infection, Adult, Daptomycin injection Referrals: Marshal Langston DPM [Physician] - 09/22/17 10:30 am (Please bring your insurance card, license, and a list of medications you are currently taking.) - Discharge Summary/Plan Comment DC Time >30 min.: No Discharge Summary/Plan Comment: Discharge Diagnoses: Osteomyelitis R 4th and 5th metatarsal R foot ulcer R lower leg cellulitis- resolving HTN COPD Mo was admitted and treated with IV Cubicin. Initial wound culture returned with MRSA, antibiotics changed to Clindamycin [address] Langston consulted recommended MRI to evaluate foot and potential osteomyelitis and abscess. MRI was unable to be obtained due to patient pain and the inability to lie still. Dr Langston was able to see patient on September 09 and took patient back to OR for I&D on September 10. Wound cultures taken at this time as well along with bone biopsy. Patient continued to do well, no leukocytosis noted throughout stay. Operative culture returned with Staph aureus, not MSSA or MRSA. Clindamycin was continued. Bone Bipsy returned late afternoon 09/14, which revealed osteomyelitis. MRI was also obtained 09/14 due to continued redness and swelling to foot. This revealed subcutaneous ulcer along lateral aspect of the foot underlying enhancement of the fifth and fourth metatarsal heads and anterior cuboid suggestive of osteomyelitis and possible septic arthritis. Extensive soft tissue swelling and enhancement suggestive of cellulitis and moderate degenerative changes noted within the right foot most prominent within the midfoot. No further surgical intervention needed per Dr Langston. Antibiotics changed to Cubicin for better penetration of of bone with osteomyelitis. PICC line was placed today by Dr Margaret Dumont to R arm. Mo will be discharged home today with 6 weeks IV antibiotics daily for R 4 and 5th metatarsal osteomyelitis. He will be arranged to have IV therapy at [facility] in [place] starting tomorrow. Scripts for daily R foot dressing change, Cubicin and PICC line dressing changes will be provided. He will follow up with Dr Langston in 1 week. He is to keep R foot clean and dry. No soaking. he is to return to the nearest ED or clinic if concerns should arise. - General Info Date of Service: 09/14/17 Admission Dx/Problem (Free Text: Admission Diagnosis/Problem cellulitis of right lower extremity with right foot ulcer Subjective Update: Mo is doing well today, no fevers, chest pain or SOB. Eager for discharge. Pain well controlled. Dressing recently changed by Dr Langston, tolerated well. Functional Status: Reports: Pain Controlled, Tolerating Diet, Ambulating, Urinating - Review of Systems General: Reports: No Symptoms. Denies: Fever HEENT: Reports: No Symptoms. Denies: Headaches, Sore Throat, Rhinitis, Visual Changes Pulmonary: Reports: No Symptoms. Denies: Shortness of Breath, Cough, Sputum Cardiovascular: Reports: No Symptoms. Denies: Chest Pain, Palpitations, Orthopnea, Edema Gastrointestinal: Reports: No Symptoms. Denies: Abdominal Pain, Nausea, Vomiting Genitourinary: Reports: No Symptoms. Denies: Dysuria, Frequency, Burning Musculoskeletal: Reports: Foot Pain (R foot pain, intermittently due to ulcer.) Skin: Reports: No Symptoms Neurological: Reports: No Symptoms Psychiatric: Reports: No Symptoms - Patient Data Vitals - Most Recent: Last Vital Signs Temp 98.6 F 09/14/17 08:00 Pulse 77 09/14/17 08:00 Resp 16 09/14/17 08:00 BP 134/87 09/14/17 10:38 Pulse Ox 93 L 09/14/17 08:00 Weight - Most Recent: 122.47 kg I&O - Last 24 hours: Intake & Output 09/13/17 09/14/17 09/14/17 22:59 06:59 14:59 Intake Total 800 1500 Output Total 1850 1125 Balance -1050 375 Lab Results - Last 24 hrs: Laboratory Results - last 24 hr 09/14/17 09/14/17 Range/Units 05:03 05:03 WBC 6.34 (4.0-11.0) K/uL RBC 3.62 L (4.50-5.90) M/uL Hgb 10.5 L (13.0-17.0) g/dL Hct 31.9 L (38.0-50.0) % MCV 88.1 (80.0-98.0) fL MCH 29.0 (27.0-32.0) pg MCHC 32.9 (31.0-37.0) g/dL RDW Std Deviation 41.6 (28.0-62.0) fl RDW Coeff of Tony 13 (11.0-15.0) % Plt Count 263 (150-400) K/uL MPV 10.40 (7.40-12.00) fL Neut % (Auto) 66.4 (48.0-80.0) % Lymph % (Auto) 22.4 (16.0-40.0) % [place] % (Auto) 8.7 (0.0-15.0) % Eos % (Auto) 2.2 (0.0-7.0) % Baso % (Auto) 0.3 (0.0-1.5) % Neut # (Auto) 4.2 (1.4-5.7) K/uL Lymph # (Auto) 1.4 (0.6-2.4) K/uL [place] # (Auto) 0.6 (0.0-0.8) K/uL Eos # (Auto) 0.1 (0.0-0.7) K/uL Baso # (Auto) 0.0 (0.0-0.1) K/uL Nucleated RBC % 0.0 /100WBC Nucleated RBCs # 0 K/uL Sodium 139 (136-146) mmol/L Potassium 4.1 (3.5-5.1) mmol/L Chloride 104 (98-110) mmol/L Carbon Dioxide 28 (21-31) mmol/L BUN 8 (6.0-23.0) mg/dL Creatinine 0.7 (0.6-1.5) mg/dL Est Cr Clr Drug Dosing 118.72 mL/min Estimated GFR (MDRD) > 60.0 ml/min Glucose 95 (60-110) mg/dL Calcium 9.6 (8.8-10.8) mg/dL Med Orders - Current: Current Medications Acetaminophen (Tylenol) 650 mg PO Q4H PRN PRN Reason: Pain (Mild 1-3)/fever Last Admin: 09/09/17 14:49 Dose: 650 mg Heparin Sodium (Porcine) (Heparin Sodium) 5,000 units SUBCUT Q12HR [facility] Last Admin: 09/14/17 10:39 Dose: 5,000 units Hydrochlorothiazide (Hydrochlorothiazide) 25 mg PO DAILY [facility] Last Admin: 09/14/17 10:38 Dose: 25 mg Daptomycin 1,000 mg/ Sodium (Chloride) 20 mls @ 600 mls/hr IV Q24H [facility] Ibuprofen (Motrin) 400 mg PO Q6H PRN PRN Reason: Pain (mild 1-3) Losartan Potassium (Cozaar) 25 mg PO DAILY [facility] Last Admin: 09/14/17 10:38 Dose: 25 mg Morphine Sulfate (Morphine) 2 mg IVPUSH Q3H PRN PRN Reason: Pain (severe 7-10) Last Admin: 09/08/17 20:13 Dose: 2 mg Ondansetron HCl (Zofran) 4 mg IVPUSH Q4H PRN PRN Reason: Nausea Oxycodone HCl (Oxycodone) 5 mg PO Q4H PRN PRN Reason: Pain (moderate 4-6) Last Admin: 09/14/17 11:47 Dose: 5 mg Symbicort 160/4.5 (Mdi 2 Puffs) 1 each INH BID [facility] Last Admin: 09/14/17 08:33 Dose: 1 each Sodium Chloride (Saline Flush) 10 ml FLUSH ASDIRECTED PRN PRN Reason: Keep Vein Open Sodium Chloride (Saline Flush) 2.5 ml FLUSH ASDIRECTED PRN PRN Reason: Keep Vein Open Discontinued Medications Bupivacaine HCl (Marcaine 0.5%) Confirm Administered Dose 30 ml .ROUTE .STK-MED ONE Stop: 09/10/17 08:40 Diphenhydramine HCl (Benadryl) Confirm Administered Dose 50 mg .ROUTE .STK-MED ONE Stop: 09/10/17 09:42 Fentanyl (Sublimaze) Confirm Administered Dose 100 mcg .ROUTE .STK-MED ONE Stop: 09/10/17 09:03 Fentanyl (Sublimaze) Confirm Administered Dose 100 mcg .ROUTE .STK-MED ONE Stop: 09/10/17 09:44 Fentanyl (Sublimaze) 50 mcg IVPUSH Q5M PRN PRN Reason: Pain (severe 7-10) Stop: 09/10/17 13:00 Fentanyl (Sublimaze) Confirm Administered Dose 100 mcg .ROUTE .STK-MED ONE Stop: 09/10/17 10:36 Gadobenate Dimeglumine (Multihance) 20 ml IVPUSH ONETIME STA Stop: 09/13/17 11:23 Last Admin: 09/13/17 11:26 Dose: 20 ml Heparin Sodium (Porcine) (Heparin Sodium) 5,000 units SUBCUT Q8H [facility] Last Admin: 09/08/17 06:24 Dose: 5,000 units Sodium Chloride (Normal Saline) 1,000 mls @ 999 mls/hr IV STAT ONE Stop: 09/07/17 17:27 Last Admin: 09/07/17 16:48 Dose: 999 mls/hr Ceftriaxone Sodium 1,000 mg/ (Lidocaine HCl) 4 mls @ 4 mls/sec IM ONETIME ONE Stop: 09/07/17 17:32 Last Admin: 09/07/17 18:05 Dose: Not Given Sodium Chloride (Normal Saline) 1,000 mls @ 999 mls/hr IV STAT ONE Stop: 09/07/17 18:31 Last Admin: 09/07/17 18:05 Dose: Not Given Sodium Chloride (Normal Saline) 1,000 mls @ 125 mls/hr IV STAT ONE Stop: 09/08/17 01:54 Last Admin: 09/07/17 18:14 Dose: 125 mls/hr Ceftriaxone Sodium/Dextrose 1 (gm/ Premix) 50 mls @ 100 mls/hr IV ONETIME ONE Stop: 09/07/17 18:33 Last Admin: 09/07/17 18:15 Dose: 100 mls/hr Sodium Chloride (Normal Saline) 1,000 mls @ 125 mls/hr IV ASDIRECTED [facility] Last Admin: 09/08/17 17:38 Dose: 125 mls/hr Daptomycin 500 mg/ Sodium (Chloride) 20 mls @ 400 mls/hr IVPUSH DAILY@2200 [facility] Last Admin: 09/08/17 22:32 Dose: 400 mls/hr Clindamycin Phosphate 600 mg/ (Premix) 50 mls @ 100 mls/hr IV Q8H [facility] Last Admin: 09/14/17 06:06 Dose: 100 mls/hr Sodium Chloride (Normal Saline) 1,000 mls @ 50 mls/hr IV ASDIRECTED [facility] Last Admin: 09/12/17 06:42 Dose: 50 mls/hr Lactated Ringer's (Ringers, Lactated) 1,000 mls @ 125 mls/hr IV ASDIRECTED [facility] Last Admin: 09/11/17 07:05 Dose: 125 mls/hr Lidocaine HCl (Xylocaine 1%) 5 ml INJECT ONETIME STA Stop: 09/14/17 13:28 Lorazepam (Ativan) 1 mg IVPUSH ONCALL ONE Stop: 09/13/17 08:53 Last Admin: 09/13/17 10:55 Dose: 1 mg Midazolam HCl (Versed 1 Mg/Ml) Confirm Administered Dose 4 mg .ROUTE .STK-MED ONE Stop: 09/10/17 09:03 Ondansetron HCl (Zofran) Confirm Administered Dose 4 mg .ROUTE .STK-MED ONE Stop: 09/10/17 09:42 Potassium Chloride (Klor-Con M20) 40 meq PO ONETIME ONE Stop: 09/10/17 09:19 Last Admin: 09/10/17 12:33 Dose: 40 meq Potassium Chloride (Klor-Con M20) 40 meq PO ONETIME ONE Stop: 09/10/17 12:27 Last Admin: 09/10/17 13:19 Dose: Not Given Propofol (Diprivan 20 Ml) Confirm Administered Dose 200 mg .ROUTE .STK-MED ONE Stop: 09/10/17 09:03 - Exam General: Reports: Alert, Oriented, Cooperative, No Acute Distress Neck: Reports: Supple Lungs: Reports: Clear to Auscultation, Normal Respiratory Effort Cardiovascular: Reports: Regular Rate, Regular Rhythm GI/Abdominal Exam: Normal Bowel Sounds, Soft, Non-Tender, No Organomegaly, No Distention, No Abnormal Bruit, No Mass, Pelvis Stable Back Exam: Reports: Normal Inspection, Full Range of Motion Extremities: Pedal Edema (+1 edema to R foot, scant pitting) Wound/Incisions: Reports: Erythema Improving (erythema to R lower leg nearly gone, scant erythema to dorsum or R foot continues, but continues to improve. Foot edema better with removing RACHID wrap.) Neurological: Reports: No New Focal Deficit Psy/Mental Status: Reports: Alert, Normal Affect, Normal Mood *Q Meaningful Use (DIS) - VTE *Q VTE Criteria *Q: - Stroke *Q Stroke Criteria *Q: - AMI *Q AMI Criteria *Q:
[2017-09-14] MEDS ORDERED: DAPTOmycin 1,000 MG in Sodium Chloride 0.9% 20 ML IV SCH (14:00)
--- NOTE | 2017-09-14 14:13 | US ---
EXAMINATION: Fluoro and ultrasound guided right-sided PICC line placement. HISTORY: Long-term antibiotics. TECHNIQUE/FINDINGS: After written informed consent was obtained from the patient using ultrasound an d Fluoro guidance under aseptic conditions utilizing 1% lidocaine as local anesthesia right basilic v ein was accessed and 5 [place] PICC catheter was deployed with its tip in the distal superior vena cav a. The catheter flushes and withdraws blood well. The catheter is flushed with the diluted heparin. The catheter secured well. IMPRESSION: Successful Fluoro and ultrasound guided PICC line placement.
== END 2017-09-14 16:15 | disposition home or self-care (01) | DRG 580 ==
LOC: MW.ED 15:08 → MW.MS 18:52 → EEVIPCON 18:52
PROVIDERS: ADMIT Internal Medicine; ATTEND Internal Medicine
PROC: 0J9Q0ZZ Drainage of Right Foot Subcutaneous Tissue and Fascia, Open Approach (ICD-10-PCS; principal; 2017-09-10)
PROC: 02HV33Z Insertion of Infusion Device into Superior Vena Cava, Percutaneous Approach (ICD-10-PCS; 2017-09-14)
DX: L97.513 Non-pressure chronic ulcer of other part of right foot with necrosis of muscle (principal); L03.115 Cellulitis of right lower limb; M86.9 Osteomyelitis, unspecified; B95.61 Methicillin susceptible Staphylococcus aureus infection as the cause of diseases classified elsewhere; I10 Essential (primary) hypertension; J44.9 Chronic obstructive pulmonary disease, unspecified; Z88.8 Allergy status to other drugs, medicaments and biological substances; Z79.899 Other long term (current) drug therapy
CPT/HCPCS: 00400; 36415; 36569; 71046; 71046-26; 73720-26-RT; 73720-RT; 76937; 76937-26; 77001; 77001-26; 80048; 80053; 81003; 82140; 82150; 82550; 83605; 83690; 85025; 85610; 87040; 87070; 87075; 87077; 87186; 87205; 87804; 88305; 88311; 94640; 96361; 96365; 99284; 99285-25; A9270-GY; A9577; J0696; J0878; J1200; J1644; J2060; J2250; J2270; J2405; J2704; J3010; J7040; J7120

== ENCOUNTER 2020-02-15 07:57 | Day surgery (SDC) | payer OTHER, MEDICARE ==
[~2020-02-15 07:57] MED LIST: Lactated Ringers 1,000 ML IV SCH; Lidocaine 2% 5 ML SDV ONE; Propofol 200 MG/20 ML SDV ONE; fentaNYL 100 MCG/2 ML SDV ONE
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
[2020-02-15] MEDS ORDERED: Propofol 200 MG/20 ML SDV ONE (09:39)
--- NOTE | 2020-02-15 10:03 | PCM.OPNOTE ---
- General Post-Op/Procedure Note Date of Surgery/Procedure: 02/15/20 Operative Procedure(s): egd w bx. colonoscopy Findings: see [id number] Pre Op Diagnosis: scrn colonoscopy and gerd Post-Op Diagnosis: Same Anesthesia Technique: Moderate Sedation Primary Surgeon: Wallace Ochoa Pathology: egd bx Complications: None Condition: Stable
--- NOTE | 2020-02-15 10:50 | PCM48HPAN ---
Post Anesthesia Note - EVALUATION WITHIN 48HRS OF ANESTHETIC Vital Signs in Normal Range: Yes Patient Participated in Evaluation: Yes Respiratory Function Stable: Yes Airway Patent: Yes Cardiovascular Function Stable: Yes Hydration Status Stable: Yes Pain Control Satisfactory: Yes Nausea and Vomiting Control Satisfactory: Yes Mental Status Recovered: Yes Vital Signs: Last Vital Signs Temp 98.2 F 02/15/20 10:23 Pulse 75 02/15/20 10:23 Resp 15 02/15/20 10:23 BP 140/66 02/15/20 10:23 Pulse Ox 95 02/15/20 10:23
--- NOTE | 2020-02-15 10:50 | PCM.POSTAN ---
POST ANESTHESIA ASSESSMENT - MENTAL STATUS Mental Status: Alert, Oriented - VITAL SIGNS Vital Signs: Last Vital Signs Temp 98.2 F 02/15/20 10:23 Pulse 75 02/15/20 10:23 Resp 15 02/15/20 10:23 BP 140/66 02/15/20 10:23 Pulse Ox 95 02/15/20 10:23 - RESPIRATORY Respiratory Status: Respiratory Rate WNL, Airway Patent, O2 Saturation Stable - CARDIOVASCULAR CV Status: Pulse Rate WNL, Blood Pressure Stable - GASTROINTESTINAL GI Status: No Symptoms - POST OP HYDRATION Hydration Status: Adequate & Stable
--- NOTE | 2020-02-15 14:37 | OR ---
SURGEON: Wallace Ochoa MD DATE OF PROCEDURE: 02/15/2020 PREOPERATIVE DIAGNOSES: Screening colonoscopy and gastroesophageal reflux disease. PROCEDURES PERFORMED: 1. Esophagogastroduodenoscopy with biopsy. 2. Colonoscopy. DESCRIPTION OF PROCEDURE: EGD: The patient was taken to the endoscopy room, and with the [employer], Diprivan was administered. A well-lubricated EGD scope was gently inserted through the oropharynx, down the esophagus, passing through the gastroesophageal junction, into the stomach. The mucosa was examined upon the passage. Any etiology will be noted. Once in the stomach, we continued to advance to the distal antrum, passed through the pylorus into the second portion of the duodenum. Again, the mucosa was examined for any abnormality and etiology. The scope was then retrieved back to the stomach and then retroflexed to look at the fundus of the stomach. If a biopsy was indicated, we will biopsy the antrum, body, and gastroesophageal junction. The air will be sucked out while the scope is retrieved to reduce the patient's discomfort. The patient tolerated the procedure well. There were no intraoperative complications. Dr. Ochoa was present through the whole procedure. Prior to surgery, a time-out had been called, the patient identified, procedure identified and antibiotic administered. The patient was taken to the endoscopy room. A time out was called, patient identified, and procedure identified. Diprivan was then administrated. Patient went from awake to sleep, hearing doctor talking or door closing is normal. Perineum inspection and digital examination were then performed. A well- lubricated colonoscope was gently inserted through the rectum, advanced past the rectosigmoid junction, the descending colon, splenic flexure, transverse colon, hepatic flexure, ascending colon, arrived to the cecum. Cecum was identified as dictated in the finding. Then the scope was carefully withdrawn while attention was paid to the mucosal surface for any abnormality. Air will be sucked out during the scope withdrawal. At the rectum, retroflexed to examine any rectal diseases, fistula or hemorrhoids. Patient tolerated procedure well. There were no intraoperative complications, and Dr. Ochoa was present throughout the whole procedure. FINDINGS: EGD findings: 1. The patient is easily sedated with [employer] and Diprivan, the patient is soundly snoring. 2. Oropharynx and proximal esophagus are free of disease, stricture, or inflammation. Distal esophagus at GE junction at 40 shows moderate salmon- colored change, consistent with acid reflux. Stomach rugae are pretty flattened, consistent with over acid production. Antrum is inflamed. Duodenum is mildly inflamed, the first portion of duodenum. Second portion is grossly normal. Retroflexed look at the fundus of the stomach, the patient does not have any hiatal hernia. Biopsy done at antrum, body, GE junction at 40 and sucked out the gas while scope pulling out. During the whole study, there is no food particle, dara ulcer, or bile observed. Colonoscopy findings: 1. The patient is easily sedated with [employer] and Diprivan, the patient is soundly snoring. 2. Bowel prep is average to below average, partly because many stool balls are floating around and the stool balls clog up the scope and sometimes covering the mucosa, so this is a compromised study. Apparently, stool ball is from the diverticulosis, so is nothing to do with the bowel prep, it is just the stool ball hiding in the diverticula. Colon is rather straightforward. Cecum indicated by ileocecal fold, one-to-one indentation, appendiceal orifice. ScopeGuide is pointing south. Light emittance is not observed. Mucosa examined upon scope pulling out with constant irrigation. The patient has diverticulosis on the left colon mostly and some on the right colon. No signs or symptoms of diverticulitis. No polyp, mass, growth, inflammation, stricture, ulceration, AV malformation, none of those. The patient has mild internal hemorrhoids, mild external hemorrhoids. The patient would benefit from repeat colonoscopy in 10 years from today or if clinically indicated otherwise. ANGELA / AMAURI /[id number]
== END 2020-02-15 10:50 | disposition home or self-care (01) ==
LOC: MW.SDS 07:57
PROVIDERS: ATTEND Surgery
DX: Z12.11 Encounter for screening for malignant neoplasm of colon (principal); K29.50 Unspecified chronic gastritis without bleeding; K21.0 Gastro-esophageal reflux disease with esophagitis; K29.80 Duodenitis without bleeding; K57.30 Diverticulosis of large intestine without perforation or abscess without bleeding; K64.4 Residual hemorrhoidal skin tags; K64.8 Other hemorrhoids; J44.9 Chronic obstructive pulmonary disease, unspecified; I10 Essential (primary) hypertension; E66.9 Obesity, unspecified; Z88.5 Allergy status to narcotic agent; Z88.8 Allergy status to other drugs, medicaments and biological substances; Z88.1 Allergy status to other antibiotic agents; Z79.82 Long term (current) use of aspirin; Z79.899 Other long term (current) drug therapy; Z87.891 Personal history of nicotine dependence; Z68.29 Body mass index [BMI] 29.0-29.9, adult
CPT/HCPCS: 43239; 45378; J2001; J2704; J3010; J7120